=== PATIENT | female | born 1935 | race Caucasian/White ===

== ENCOUNTER 2020-02-18 17:52 | Inpatient (IN) | payer OTHER ==
[~2020-02-18] VITALS: Ht 165.1 cm; Wt 73.4 kg
[2020-02-18 18:56] LABS: Basophils # (auto) 0 10 ^3/uL (0-0.2); Basophils % (auto) 0.2 % (0.0-2.0); Eosinophils # (auto) 0 10 ^3/uL (0-0.8); Eosinophils % (auto) 0.4 % (0.0-7.0); Hemoglobin 10.5 g/dL (12.2-16.2); Lymphocytes # (auto) 0.3 10 ^3/uL (0.4-5.4); Monocytes # (auto) 0.7 10 ^3/uL (0-1.3); Neutrophils # (auto) 7.8 10 ^3/uL (1.6-8.6); White Blood Cell 8.9 10^3/uL (4.4-10.8)
[2020-02-18 18:58] LABS: Hematocrit 32.3 % (36.0-46.0); Lymphocytes % (auto) 3.8 % (10.0-50.0); Mean Corpuscular Hgb Conc. 32.5 g/dL (32.0-36.0); Monocytes % (auto) 7.7 % (0.0-12.0); Neutrophils % (auto) 87.9 % (37.0-80.0); Platelet Count (auto) 228 10^3/uL (140-450); Red Blood Cells 4.03 10^6/uL (4.0-5.20); Red Cell Distribution Width 16.1 % (11.8-14.3)
[2020-02-18 19:13] LABS: BUN/Creatinine Ratio 33.3; Magnesium 2.3 mg/dL (1.6-2.6); Potassium 4.6 mmol/L (3.5-5.1)
[2020-02-18 19:18] LABS: Bilirubin, Total 0.3 mg/dL (0.2-1.0); Total Protein 7.5 g/dL (6.4-8.2)
[2020-02-18] MEDS ORDERED: ENOXAPARIN SOD 80 MG/0.8ML SYRINGE SC ONE (20:45)
[2020-02-18] MEDS ORDERED: ONDANSETRON HCL 4 MG/2 ML VIAL IV PRN (20:45)
[2020-02-18] MEDS ORDERED: ACETAMINOPHEN 325 MG TAB PO PRN (20:45)
[2020-02-18] MEDS ORDERED: TEMAZEPAM 15 MG CAP PO PRN (20:45)
[2020-02-18] MEDS ORDERED: DEXTROSE (50%) 50ML SYRG IV PRN (20:45)
[2020-02-18] MEDS ORDERED: MORPHINE SULF INJ 2 MG/ML SYRINGE 1ML IV PRN (21:30)
[2020-02-18] MEDS ORDERED: NITROGLYCERIN 0.4 MG SL TAB SL PRN (21:30)
[2020-02-18] MEDS: InsuLIN REG 1unit/0.01ml Soln (100units/ml) SC SCH (22:00)
[2020-02-18] MEDS: ATORVASTATIN 20 MG TAB PO SCH (22:00)
[2020-02-18] MEDS: ACCU-CHEK COMFORT CURVE STRIP VI SCH (22:03)
[2020-02-18] MEDS: HYDROcodone-ACET 5/325MG TAB PO PRN (23:07)
--- NOTE | 2020-02-18 23:07 | NUR ---
Telemetry admit from CLAUD[facility] MUSTAFA admitted to Telemetry unit after SBAR received. Patient oriented to Alyson Duncan, primary RN, unit, room, bed, and unit policies regarding patient care and visiting hours. Patient now on continuous telemetry monitoring, tele box # [59] and telemetry reading on arrival to unit is [ST 101]. Patient placed on bedside oxygen, weighed by bedscale and encouraged to call if they need something. All questions and concerns addressed, patient verbalized understanding. Note: PATIENT C/O PAIN @ 06/20, AND REQUESTED TO HAVE NORCO. MEDICATED PATIENT ORDERED. CONTINUE TO MONITOR.
[2020-02-18 23:33] VITALS: BP 163/71
--- NOTE | 2020-02-19 00:07 | NUR ---
REASSESSED PAIN, PATIENT STATED NO PAIN NOW IF SHE DID NOT MOVE HER RIGHT LEG. CONTINUE TO MONITOR.
--- NOTE | 2020-02-19 00:26 | NUR ---
WOUND PICS DONE
--- NOTE | 2020-02-19 02:12 | NUR ---
PATIENT SLEEPING. NO S/S OF DISTRESS NOTED. CONTINUE TO MONITOR
[2020-02-19 05:00] VITALS: BP 151/84
[2020-02-19] MEDS: HYDROcodone-ACET 5/325MG TAB PO PRN ×3 (05:10→16:46)
--- NOTE | 2020-02-19 05:10 | NUR ---
PATIENT WOKE UP AND C/O PAIN @ 10/10, PATIENT PREFERRED NORCO. MEDICATED PATIENT ORDERED. CONTINUE TO MONITOR.
--- NOTE | 2020-02-19 06:10 | NUR ---
REASSESSED PAIN @ 02/18. CONTINUE TO MONITOR.
[2020-02-19] MEDS: InsuLIN REG 1unit/0.01ml Soln (100units/ml) SC SCH ×4 (06:27→21:38)
[2020-02-19] MEDS: ACCU-CHEK COMFORT CURVE STRIP VI SCH ×4 (06:27→21:38)
--- NOTE | 2020-02-19 06:35 | NUR ---
ACCU-CHECK, BS 112. NO COVERAGE. CONTINUE TO MONITOR.
[2020-02-19 06:43] LABS: BUN/Creatinine Ratio 35.6; Potassium 4.2 mmol/L (3.5-5.1)
[2020-02-19 06:47] LABS: Basophils # (auto) 0 10 ^3/uL (0-0.2); Basophils % (auto) 0.1 % (0.0-2.0); Eosinophils # (auto) 0.1 10 ^3/uL (0-0.8); Eosinophils % (auto) 1.2 % (0.0-7.0); Lymphocytes # (auto) 0.4 10 ^3/uL (0.4-5.4); Mean Corpuscular Volume 80.7 fL (80.0-100.0); Neutrophils # (auto) 6.2 10 ^3/uL (1.6-8.6)
[2020-02-19 06:50] LABS: Hematocrit 31.6 % (36.0-46.0); Hemoglobin 10.2 g/dL (12.2-16.2); Mean Corpuscular Hgb Conc. 32.2 g/dL (32.0-36.0); Monocytes # (auto) 0.7 10 ^3/uL (0-1.3); Monocytes % (auto) 9.1 % (0.0-12.0); Neutrophils % (auto) 84.6 % (37.0-80.0); Platelet Count (auto) 190 10^3/uL (140-450); Red Blood Cells 3.92 10^6/uL (4.0-5.20); Red Cell Distribution Width 16.2 % (11.8-14.3); White Blood Cell 7.3 10^3/uL (4.4-10.8)
--- NOTE | 2020-02-19 07:20 | NUR ---
Opening Shift Note RECEIVED REPORT FROM NOC RN. Assumed care of patient, awake and alert. No S/S of distress/SOB or pain. BED IN LOWEST, LOCKED POSITION WITH SIDE RAILS UP x2 AND CALL LIGHT WITHIN REACH. Instructed on POC,call light within reach patient reminded instructed to call for assistance.patient verbalized understanding.will continue to monitor for changes Q1hr and PRN.
--- NOTE | 2020-02-19 08:00 | NUR ---
Ritesh Alen called, updated with patient status after password provided,received list of home medications.
--- NOTE | 2020-02-19 08:30 | NUR ---
Patient assisted with breakfast,tolerated well
[2020-02-19 09:00] VITALS: BP 161/67
[2020-02-19] MEDS: ASPirin 81 mg TAB PO SCH (09:43)
[2020-02-19] MEDS: PANTOPRAZOLE 40 MG TAB PO SCH (09:43)
[2020-02-19] MEDS ORDERED: POTA10TA51 PO (10:37)
[2020-02-19] MEDS ORDERED: HYDR-531 PO (10:37)
[2020-02-19] MEDS ORDERED: LOSA-39 PO (10:37)
[2020-02-19] MEDS ORDERED: FURO20TA3 PO (10:37)
[2020-02-19] MEDS ORDERED: GLIP5TAB12 PO (10:37)
[2020-02-19] MEDS ORDERED: PIO30T PO (10:37)
--- NOTE | 2020-02-19 11:10 | NUR ---
MD VISIT DR. ROGERS HERE TO SEE AND EXAMINED PATIENT,UPDATED WITH PATIENT STATUS AND PATIENT CONSTANT C/O OF PAIN DESPITE MEDICATING WITH NORCO,HIGH BP.
--- NOTE | 2020-02-19 11:30 | NUR ---
DR. ROGERS SPOKE TO LYRIC PATIENT SON RE PLAN OF CARE,TREATMENTS AND PLAN TO DISCHARGE TO SNF FOR REHAB,RECEIVED ORDERS,SEE WRITTEN ORDERS.
[2020-02-19] MEDS ORDERED: GABA300C10 PO (11:32)
--- NOTE | 2020-02-19 11:40 | NUR ---
LYRIC (SON) SPOKE TO PATIENT RE PLAN OF CARE,PATIENT AGREED TO BE DISCHARGE TO SNF FOR REHAB.
[2020-02-19] MEDS ORDERED: GABAPENTIN 100 MG CAP PO ONE (12:00)
[2020-02-19] MEDS ORDERED: LOSARTAN POTASSIUM 50 MG TAB PO SCH (12:15)
[2020-02-19] MEDS ORDERED: LOSARTAN POTASSIUM 50 MG TAB PO ONE (12:15)
--- NOTE | 2020-02-19 12:33 | NUR ---
C/O RIGHT HIP AND LEG PAIN,MEDICATED WITH NORCO AND NEURONTIN ORDERED BY DR. ROGERS
[2020-02-19 12:36] LABS: Cholesterol 118 mg/dL (< 200)
[2020-02-19] MEDS: CARVEDILOL 3.125 MG TAB PO SCH ×2 (12:36→21:37)
[2020-02-19] MEDS: ENOXAPARIN SOD 40 MG/0.4 ML SYRINGE SC SCH (12:36)
[2020-02-19 12:38] LABS: HDL Cholesterol 34 mg/dL (40-59); LDL Cholesterol 57 mg/dL (< 100); Triglycerides 102 mg/dL (< 150)
[2020-02-19 13:00] VITALS: BP 188/75
--- NOTE | 2020-02-19 13:15 | NUR ---
MD VISIT DR. MURILLO HERE TO SEE AND EXAMINED PATIENT,STATED WILL REVIEW ECHO ONCE AVAILABLE
--- NOTE | 2020-02-19 13:35 | NUR ---
RIGHT KNEE XRAY RESULT CALLED TO DR. ROGERS
--- NOTE | 2020-02-19 14:30 | NUR ---
PHYSICAL THERAPY AT BEDSIDE FOR EVALUATION,SEE P.T. NOTES
--- NOTE | 2020-02-19 15:37 | NUR ---
Assessment Patient is an 84-year-old female. Unable to speak to patient. Assessment was completed with patient son Alen who is also patient POA ). Per Alen prior to admission patient lived home with him. Per Alen patient has a walker and shower jacinta for home use. Advised Alen there is a social service consult for SNF placement. Per Alen provider spoke to him regarding placement and he agrees for patient to be placed. Informed Alen clinical information will be faxed to [facility] and they will assign SNF placement. Per Alen he wants patient to be placed at a local [facility] nursing [facility]. Informed Alen I will inform health plan. Informed Alen he has the right to participate in all discharge planning. Alen verbalized understanding and agreed to discharge plan. Informed LIDIA Astorga who is covering LIDIA blanc (-) WILLIAMID is needed for placement. Addendum: 02/19/20 at 1539 by LYNETTE GAYTAN Amended: Links added.
--- NOTE | 2020-02-19 16:46 | NUR ---
c/o right hip and leg pain,medicated with [place] 5/325 mg see eMAR for detail
[2020-02-19 17:00] VITALS: BP 162/77
[2020-02-19] MEDS: cefTRIAXone 1GM/50ML D5W 50 ML IV SCH (17:36)
--- NOTE | 2020-02-19 18:05 | NUR ---
COVID SWAB OBTAINED,SENT TO LAB FOR TESTING
--- NOTE | 2020-02-19 19:00 | NUR ---
Opening Shift Note Assumed care of patient, patient asleep upon entering. Patient was easy to arouse, with no SOB or complaints of pain at this time. Patient stated she wanted to sleep but let me assess her. Instructed on POC and to call for assist PRN, will continue to monitor for changes Q1hr and PRN. Patient in the lowest possible position with call light within reach.
[2020-02-19 20:00] VITALS: BP 176/94
--- NOTE | 2020-02-19 20:20 | NUR ---
Call from Dr. Jackson. Informed that covid swab has been sent to the lab but we're still waiting for patient to give us a UA sample. put in for PT to evaluate patient and to hand off to day shift to ensure that patient gets up for PT to see what patient can do. Will inform dayshift RN of communication.
[2020-02-19] MEDS: GABAPENTIN 100 MG CAP PO SCH (21:37)
[2020-02-19] MEDS: ATORVASTATIN 20 MG TAB PO SCH (21:37)
[2020-02-19 22:00] VITALS: BP 176/94
[2020-02-19] MEDS ORDERED: CARVEDILOL 3.125 MG TAB PO SCH (22:00)
[2020-02-20] VITALS (12 sets, daily range): BP systolic 75–171; BP diastolic 32–70
[2020-02-20] MEDS: GABAPENTIN 100 MG CAP PO SCH ×3 (05:33→21:15)
[2020-02-20] MEDS: HYDROcodone-ACET 5/325MG TAB PO PRN (05:34)
--- NOTE | 2020-02-20 05:45 | NUR ---
Patient complains of pain in her right hip when being moved. Patient receiving [place] 5 for pain q4h. Patient states that medication is not enough for her pain level when moving her. States that she needs her medication changed for pain. Will relay message to day shift RN. Plan to go to SNF.
[2020-02-20 06:19] LABS: Basophils # (auto) 0 10 ^3/uL (0-0.2); Eosinophils # (auto) 0.1 10 ^3/uL (0-0.8)
[2020-02-20 06:21] LABS: Basophils % (auto) 0.2 % (0.0-2.0); Eosinophils % (auto) 1.8 % (0.0-7.0); Hematocrit 35.5 % (36.0-46.0); Hemoglobin 11.3 g/dL (12.2-16.2); Lymphocytes # (auto) 0.6 10 ^3/uL (0.4-5.4); Lymphocytes % (auto) 7.8 % (10.0-50.0); Mean Corpuscular Hemoglobin 25.8 pg (28.0-32.0); Mean Corpuscular Hgb Conc. 31.9 g/dL (32.0-36.0); Mean Corpuscular Volume 80.8 fL (80.0-100.0); Monocytes # (auto) 0.7 10 ^3/uL (0-1.3); Monocytes % (auto) 10.5 % (0.0-12.0); Neutrophils # (auto) 5.7 10 ^3/uL (1.6-8.6); Neutrophils % (auto) 79.7 % (37.0-80.0); Platelet Count (auto) 233 10^3/uL (140-450); Red Blood Cells 4.39 10^6/uL (4.0-5.20); Red Cell Distribution Width 16.1 % (11.8-14.3); White Blood Cell 7.1 10^3/uL (4.4-10.8)
[2020-02-20] MEDS: ACCU-CHEK COMFORT CURVE STRIP VI SCH ×4 (06:22→21:15)
[2020-02-20] MEDS: InsuLIN REG 1unit/0.01ml Soln (100units/ml) SC SCH ×4 (06:25→21:17)
[2020-02-20 06:51] LABS: BUN/Creatinine Ratio 29.8; Calcium 8.5 mg/dL (8.5-10.1)
--- NOTE | 2020-02-20 07:14 | NUR ---
OPENING SHIFT NOTE Assumed care of patient from second shift supervisor RN. Patient is alert and oriented x4, no signs of distress noted. Patient denies pain in her right hip but stated "it hurts when I move". She was updated on the plan of care and verbalized understanding. There is a sitter at bedside. Patient is a high fall risk. She is receiving oxygen @ 2L/min via nasal cannula, saturation is 93%. Patient is breathing from her mouth and was encouraged to breathe through her nose. Bed is locked, in the lowest position, side rail up x2 and call light is in reach. Patient was encouraged to call for assistance as needed.
--- NOTE | 2020-02-20 08:31 | NUR ---
CALL FROM FAMILY Patient's son Sergio called. After verification of password he was updated on the patient status and plan of care. He verbalized understanding. All questions answered.
[2020-02-20] MEDS: cefTRIAXone 1GM/50ML D5W 50 ML IV SCH (08:53)
[2020-02-20] MEDS: ASPirin 81 mg TAB PO SCH (09:54)
[2020-02-20] MEDS: LOSARTAN POTASSIUM 50 MG TAB PO SCH (09:55)
[2020-02-20] MEDS: CARVEDILOL 3.125 MG TAB PO SCH ×2 (09:55→21:25)
[2020-02-20] MEDS: PANTOPRAZOLE 40 MG TAB PO SCH (09:55)
[2020-02-20] MEDS: ENOXAPARIN SOD 40 MG/0.4 ML SYRINGE SC SCH (09:56)
[2020-02-20] MEDS ORDERED: LOSARTAN POTASSIUM 50 MG TAB PO SCH (10:00)
[2020-02-20] MEDS: HYDROcodone-ACET 10/325MG TAB PO PRN ×3 (10:03→21:16)
--- NOTE | 2020-02-20 11:03 | NUR ---
PHYSICAL THERAPY AT BEDSIDE Patient up to chair, tolerated well, Max assist.
--- NOTE | 2020-02-20 11:46 | NUR ---
CALL FROM TELE OFFICE patient showing new afib with RVR, HR is 169. Patient is sitting the the chair at bedside, patient is asymptomatic. BP is 104/50 Paged Banko and left message, awaiting call back. Called Manuel, updated on patient status, new order received for digoxin 0.5mg IV once now, order read back and verified. Follow up with cardiology. Per MD if patient HR is 150-160 this evening discharge will be held.
[2020-02-20] MEDS ORDERED: DIGOXIN (250MCG/ML) 2 ML AMPULE IV ONE (12:00)
--- NOTE | 2020-02-20 13:13 | NUR ---
CHIDI PAGED Patient HR 167. Awaiting call back.
--- NOTE | 2020-02-20 13:14 | NUR ---
CALL FROM LAB Patient blood culture is positive for gram negative rods, will notify
--- NOTE | 2020-02-20 13:18 | NUR ---
CALLED ANISHA to update on patient status. Patient heart rate is 167 and blood cultures were positive for gram negative rods. New orders received to cancel the discharge today, discontinue Rocephin and start Zosyn 3.375g IV q6h, first dose now, give amiodarone bolus 150mg x1 and start amiodarone drip per protocol. Orders read back and verified. Will follow through.
[2020-02-20] MEDS ORDERED: AMIODARONE HCL 150 MG in D5W 5% 100 ML IV ONE (13:30)
[2020-02-20] MEDS ORDERED: AMIODARONE 450mg/250ml AE 250 ML IV SCH (13:33)
--- NOTE | 2020-02-20 13:52 | NUR ---
IV insertion IV access obtained, via clean sterile technique by inserting 20 gauge catheter at right wrist after 1 attempt. IV secured properly. No trauma to site. Patient tolerated well.
[2020-02-20] MEDS: PIPERACILLIN-TAZOB 3.375GM 100 ML IV SCH ×3 (13:59→23:47)
--- NOTE | 2020-02-20 14:06 | NUR ---
CALL FROM [facility] updated on patient status. order to run amiodarone bolus over 30 minutes.
--- NOTE | 2020-02-20 14:25 | NUR ---
AMIODARONE DRIP STARTED. BP IS 98/48 HR is 156 Patient is in the chair. Patient refused to get back in bed. Patient was educated on fall risk and she continues to refuse stating "I am more comfortable in the bed. Will continue to monitor.
--- NOTE | 2020-02-20 15:05 | NUR ---
CALL TO FAMILY Patient's son Sergio called. After verification of password he was updated on the patient status and plan of care. He verbalized understanding. All questions answered.
--- NOTE | 2020-02-20 15:21 | NUR ---
AMIODARONE BOLUS COMPLETE/ DRIP STARTED HR 113 BP 110/50
--- NOTE | 2020-02-20 16:10 | NUR ---
DECREASED BLOOD PRESSURE patient blood pressure 86/32, heart rate 61. Banko paged, new orders received to bolus NS 250ml at 250ml/hr, and to decrease the amiodarone drip to 0.5mg/min, discontinue amiodarone if HR<50. Orders read back and verified.
--- NOTE | 2020-02-20 16:25 | NUR ---
ANISHA CALLED Updated on patient status, no new orders received.
[2020-02-20] MEDS: SODIUM CHLORIDE 0.9% 1,000 ML IV SCH ×3 (16:45→22:00)
--- NOTE | 2020-02-20 17:43 | NUR ---
BP 73/32 After 250ml bolus. Called Manuel, new order for NS 1000ml bolus. Will administer
[2020-02-20] MEDS ORDERED: SODIUM CHLORIDE 0.9% 2,200 ML IV ONE (18:00)
[2020-02-20] MEDS ORDERED: SODIUM CHLORIDE 0.9% 1,000 ML IV ONE (18:00)
--- NOTE | 2020-02-20 18:40 | NUR ---
BP RECHECK 136/64 500ml of bolus remaining.
--- NOTE | 2020-02-20 19:02 | NUR ---
CLOSING SHIFT NOTE Care endorsed to shift supervisor film processing RN. Patient is stable BP 128/62, HR 73. No signs of distress noted.
--- NOTE | 2020-02-20 19:15 | NUR ---
Opening Shift Note Assumed care of patient, awake and alert. No S/S of distress/SOB or pain at this time. Patient in the lowest possible position with bed rails up x2 and call light within reach. Bolus at end, blood pressure reading 133/62 with a heart rate of 72. Blood pressure continuing to cycle to monitor. Will continue to monitor patients vitals as patient is receiving amiodarone. Will stop infusing if heart rate goes below 50. Instructed on POC and to call for assist PRN, will continue to monitor for changes Q1hr and PRN.
[2020-02-20] MEDS: AMIODARONE 450mg/250ml AE 250 ML IV SCH (19:33)
[2020-02-20] MEDS: ATORVASTATIN 20 MG TAB PO SCH (21:15)
[2020-02-21] MEDS: SODIUM CHLORIDE 0.9% 1,000 ML IV SCH (02:45)
--- NOTE | 2020-02-21 04:20 | NUR ---
Patient on 0.5 mg amiodarone. Patient attached to B/P and O2 for the night. Patient has been having her heart rate stay in the 60-70s, will continue to monitor if it goes below 50. Patients B/P has been fluctuating but has been staying around the 90s to the low 100s for systolic pressure. Patient receiving NS. Will continue to monitor patients vitals for a decrease in blood pressure.
[2020-02-21 05:00] VITALS: BP 128/53
[2020-02-21] MEDS: GABAPENTIN 100 MG CAP PO SCH ×2 (05:35→14:05)
[2020-02-21] MEDS: PIPERACILLIN-TAZOB 3.375GM 100 ML IV SCH ×2 (05:35→11:42)
[2020-02-21] MEDS: HYDROcodone-ACET 10/325MG TAB PO PRN ×4 (05:36→18:11)
[2020-02-21] MEDS: AMIODARONE 450mg/250ml AE 250 ML IV SCH (05:36)
[2020-02-21] MEDS: ACCU-CHEK COMFORT CURVE STRIP VI SCH ×3 (05:54→16:51)
[2020-02-21] MEDS: InsuLIN REG 1unit/0.01ml Soln (100units/ml) SC SCH ×3 (06:05→16:55)
--- NOTE | 2020-02-21 07:00 | NUR ---
OPENING SHIFT NOTE Assumed care of patient from night clerk RN. Patient is alert and oriented x4, no signs of distress noted. Patient denies pain in her right hip but stated "it hurts when I move". She was updated on the plan of care and verbalized understanding. There is a sitter at bedside. Patient is a high fall risk. She is receiving oxygen @ 3L/min via nasal cannula, saturation is 91%. Patient is breathing from her mouth and was encouraged to breathe through her nose. Bed is locked, in the lowest position, side rail up x2 and call light is in reach. Patient was encouraged to call for assistance as needed.
--- NOTE | 2020-02-21 07:27 | NUR ---
BP 75/31 HR 76 Manuel called and updated on patient status. After repositioning patient BP was 127/50. Communication order to get patient up to the chair today Jonio paged to see if we can switch the amiodarone to PO per Manuel suggestions. Awaiting call back.
--- NOTE | 2020-02-21 08:03 | NUR ---
BP 127/50, HR 81 Will continue to monitor.
--- NOTE | 2020-02-21 08:42 | NUR ---
CHIDI REPAGED regarding discontinuing the amiodarone and switching it to PO. Awaiting call back
[2020-02-21 09:03] VITALS: BP 127/50
[2020-02-21] MEDS: PANTOPRAZOLE 40 MG TAB PO SCH (09:53)
[2020-02-21] MEDS: ASPirin 81 mg TAB PO SCH (09:53)
[2020-02-21] MEDS: ENOXAPARIN SOD 40 MG/0.4 ML SYRINGE SC SCH (09:53)
--- NOTE | 2020-02-21 10:19 | NUR ---
CALL FROM [facility] Updated on the patient status, new order to DC amiodarone drip and start patient on amiodarone 200mg PO BID. Orders read back and verified. Will input. Addendum: 02/21/20 at 1048 by PATRICIA PADGETT RN Per MD patient is stable for transport to [facility].
[2020-02-21] MEDS ORDERED: AMIODARONE HCL 200 MG TAB PO SCH (10:30)
[2020-02-21] MEDS: LOSARTAN POTASSIUM 50 MG TAB PO SCH (10:38)
[2020-02-21] MEDS: CARVEDILOL 3.125 MG TAB PO SCH (10:38)
--- NOTE | 2020-02-21 10:41 | NUR ---
ANISHA AT BEDSIDE Updated on patient status, plan of care was discussed with the patient and she verbalized understanding. Per MD patient will be transferred to SNF today, titrate down O2 and transfer with one peripheral IV. No other orders received, will follow through.
--- NOTE | 2020-02-21 12:09 | NUR ---
CALL FROM LYNETTE REGARDING SNF PLACEMENT Patient will be going to [facility] room 205 bed 2. Number to call for report: . Patient will be picked up by Iker Yee at 1800. .
--- NOTE | 2020-02-21 12:12 | NUR ---
CALLED PATIENT'S SON Sourav . After Verification of password he was updated on the plan to discharge patient to SNF. All questions answered.
[2020-02-21 12:23] VITALS: BP 120/59
--- NOTE | 2020-02-21 15:41 | NUR ---
D/C Planning Received a follow up call from MICHEL Giron with [facility] advising me [facility] [phone] has accepted patient to room 205 bed 2 accepting MD, Dr. Gilmore. Transportation has been arranged with [facility] [phone] via [facility]. Informed RN Collette.
[2020-02-21 16:41] VITALS: BP 118/59
--- NOTE | 2020-02-21 17:10 | NUR ---
WOUND PICTURES TAKEN FOR DC
[2020-02-21 17:30] VITALS: BP 118/59
--- NOTE | 2020-02-21 18:20 | NUR ---
DISCHARGE Discharge instructions given as ordered. Encourage to follow up with PMD as instructed. All questions and concerns addressed. Patient verbalized understanding. Medication reconciliation form completed and copy given to patient. IV kept in per MD order. Patient transported via [facility]. Telemonitor taken with the patient. Charge informed. Called security to see if they can pick it up. Awaiting call back.
== END 2020-02-21 18:20 | DRG 554 ==
LOC: ER 17:52 → EDBD 17:52 → TELE-WESTW 17:53
PROVIDERS: ADMIT Nurse Practitioner; ATTEND Internal Medicine
DX: M16.0 Bilateral primary osteoarthritis of hip (principal); R55 Syncope and collapse; R79.89 Other specified abnormal findings of blood chemistry; N18.3 Chronic kidney disease, stage 3 (moderate); E11.22 Type 2 diabetes mellitus with diabetic chronic kidney disease; D64.9 Anemia, unspecified; W01.0XXA Fall on same level from slipping, tripping and stumbling without subsequent striking against object, initial encounter; M43.06 Spondylolysis, lumbar region; E86.9 Volume depletion, unspecified; I48.91 Unspecified atrial fibrillation; Z79.899 Other long term (current) drug therapy; Y93.89 Activity, other specified; Y92.091 Bathroom in other non-institutional residence as the place of occurrence of the external cause; Y99.8 Other external cause status; Z11.59 Encounter for screening for other viral diseases; I12.9 Hypertensive chronic kidney disease with stage 1 through stage 4 chronic kidney disease, or unspecified chronic kidney disease
CPT/HCPCS: 36415; 71045; 72192; 73562; 80048; 80053; 80061; 82962; 83036; 83735; 84484; 85025; 87040; 87077; 87186; 93005; 93306; 97110; 97530; G0378; J0696; J1815; J2543; J7060

== ENCOUNTER 2020-02-29 22:17 | Inpatient (IN) | payer OTHER ==
[~2020-02-29] VITALS: Ht 160 cm; Wt 82.3 kg
[~2020-02-29 22:17] MED LIST: FURO20TA3 PO; GABA300C10 PO; GLIP5TAB12 PO; HYDR-531 PO; LOSA-39 PO; PIO30T PO; POTA10TA51 PO
[2020-03-01] VITALS (57 sets, daily range): BP systolic 76–232; BP diastolic 26–92
[2020-03-01] MEDS ORDERED: ONDANSETRON HCL 4 MG/2 ML VIAL IV ONE (00:30)
[2020-03-01] MEDS ORDERED: MORPHINE SULFATE 4 MG/ML SYR/VIAL IV ONE (00:30)
[2020-03-01] MEDS ORDERED: SODIUM CHLORIDE 0.9% 1,000 ML IVB ONE (02:10)
[2020-03-01 02:30] LABS: Basophils # (auto) 0.1 10 ^3/uL (0-0.2); Basophils % (auto) 0.6 % (0.0-2.0); Eosinophils # (auto) 0.7 10 ^3/uL (0-0.8); Hemoglobin 8.5 g/dL (12.2-16.2); Neutrophils # (auto) 8.8 10 ^3/uL (1.6-8.6); Platelet Count (auto) 526 10^3/uL (140-450)
[2020-03-01 02:32] LABS: Eosinophils % (auto) 5.9 % (0.0-7.0); Hematocrit 27.2 % (36.0-46.0); Lymphocytes % (auto) 8.5 % (10.0-50.0); Mean Corpuscular Hemoglobin 25.8 pg (28.0-32.0); Mean Corpuscular Hgb Conc. 31.2 g/dL (32.0-36.0); Mean Corpuscular Volume 82.8 fL (80.0-100.0); Monocytes # (auto) 1.2 10 ^3/uL (0-1.3); Monocytes % (auto) 9.8 % (0.0-12.0); Neutrophils % (auto) 75.2 % (37.0-80.0); Nucleated Red Blood Cells % 0.1 %; Red Blood Cells 3.29 10^6/uL (4.0-5.20); Red Cell Distribution Width 16.2 % (11.8-14.3); White Blood Cell 11.7 10^3/uL (4.4-10.8)
[2020-03-01 02:47] LABS: Albumin 1.8 g/dL (3.4-5.0); Calcium 7.5 mg/dL (8.5-10.1); INR 1.07 (0.9-1.15); Partial Thromboplastin Time 27.1 sec (23.64-32.05)
[2020-03-01 02:49] LABS: BUN/Creatinine Ratio 55.2
[2020-03-01 02:54] LABS: Bilirubin, Total 0.3 mg/dL (0.2-1.0); Total Protein 5.8 g/dL (6.4-8.2)
[2020-03-01 03:07] LABS: Urine Bacteria NONE SEEN /hpf (None Seen); Urine Blood Negative /uL (Negative); Urine Specific Gravity 1.011 (1.001-1.035); Urine WBC <1 /hpf (0 - 5)
[2020-03-01] MEDS ORDERED: DEXTROSE (50%) 50ML SYRG IV ONE ×2 (03:15→06:15)
[2020-03-01] MEDS ORDERED: CALCIUM GLUC 4.65meq/50ml D5AE 50 ML IV ONE ×2 (03:15→18:45)
[2020-03-01] MEDS ORDERED: SODIUM BICARBONATE 8.4 % INJ 50ML VIAL IV ONE (03:15)
[2020-03-01] MEDS ORDERED: InsuLIN REG 1unit/0.01ml Soln (100units/ml) IV ONE (03:15)
[2020-03-01] MEDS: NOREPINEPHRINE 8 MG/250ML KIT 250 ML IV SCH ×2 (03:55→09:00)
[2020-03-01] MEDS ORDERED: fentaNYL CITRATE 100 MCG/2 ML VL IV ONE (04:15)
[2020-03-01] MEDS ORDERED: ETOMIDATE (2MG/ML) 20ML VIAL IV ONE (04:30)
[2020-03-01] MEDS ORDERED: SUCCINYLCHOLINE CHLORIDE 20 MG/ML 10ML VIAL IV ONE (04:30)
[2020-03-01] MEDS: fentaNYL Drip 2500mCg/250mlNS 250 ML IV SCH ×2 (04:57→09:00)
[2020-03-01] MEDS: MIDAZOLAM DRIP 50 mg/50mL 50 ML IV SCH (04:59)
[2020-03-01] MEDS ORDERED: NITROGLYCERIN 0.4 MG SL TAB SL PRN (07:00)
[2020-03-01 07:23] LABS: Basophils # (auto) 0.1 10 ^3/uL (0-0.2); Hemoglobin 9.3 g/dL (12.2-16.2); Lymphocytes % (auto) 7.4 % (10.0-50.0); Monocytes # (auto) 1.1 10 ^3/uL (0-1.3)
[2020-03-01 07:24] LABS: Chloride 116 mmol/L (98-107); Sodium 145 mmol/L (136-145)
[2020-03-01 07:25] LABS: Basophils % (auto) 0.7 % (0.0-2.0); Eosinophils # (auto) 0.7 10 ^3/uL (0-0.8); Eosinophils % (auto) 5.9 % (0.0-7.0); Hematocrit 29.5 % (36.0-46.0); Lymphocytes # (auto) 0.8 10 ^3/uL (0.4-5.4); Mean Corpuscular Hemoglobin 26.4 pg (28.0-32.0); Mean Corpuscular Hgb Conc. 31.5 g/dL (32.0-36.0); Monocytes % (auto) 9.8 % (0.0-12.0); Neutrophils # (auto) 8.6 10 ^3/uL (1.6-8.6); Neutrophils % (auto) 76.2 % (37.0-80.0); Nucleated Red Blood Cells % 0.1 %; Platelet Count (auto) 560 10^3/uL (140-450); Red Blood Cells 3.52 10^6/uL (4.0-5.20); White Blood Cell 11.4 10^3/uL (4.4-10.8)
[2020-03-01 07:29] LABS: Anion Gap 6 (5-15); BUN/Creatinine Ratio 52.4; Blood Urea Nitrogen 77 mg/dL (7-18); Calcium 7.8 mg/dL (8.5-10.1); Carbon Dioxide 23 mmol/L (21-32); GFR African American 44 mL/min; GFR Non-African American 36 mL/min; Glucose 58 mg/dL (74-106)
[2020-03-01] MEDS ORDERED: SOD CHL 0.45% 1,000 ML IV ONE (07:30)
[2020-03-01] MEDS ORDERED: ALBUMIN 25% 100 ML IV ONE (07:30)
[2020-03-01 07:58] LABS: Alanine Aminotransferase 25 U/L (13-56); Alkaline Phosphatase 81 U/L (45-117); Aspartate Aminotransferase 18 U/L (15-37); Bilirubin, Total 0.3 mg/dL (0.2-1.0); Total Protein 6.6 g/dL (6.4-8.2)
[2020-03-01 08:26] LABS: Potassium 5.8 mmol/L (3.5-5.1)
[2020-03-01] MEDS ORDERED: IPRATROPIUM BROM 0.5 MG/2.5ML INH SOL NEB SCH (10:00)
[2020-03-01] MEDS ORDERED: ALBUTEROL SULF 2.5 MG/0.5ML(0.5%) NEB SOLN NEB SCH (10:00)
[2020-03-01] MEDS: IPRATROPIUM BROM 0.5 MG/2.5ML INH SOL NEB SCH ×4 (10:12→22:03)
[2020-03-01] MEDS: ALBUTEROL SULF 2.5 MG/0.5ML(0.5%) NEB SOLN NEB SCH ×4 (10:12→22:03)
[2020-03-01] MEDS ORDERED: VANCOMYCIN PER PHARMACY 0 MG IV SCH (13:15)
[2020-03-01] MEDS ORDERED: VANCOMYCIN 1GM/250ML 250 ML IV ONE (13:30)
[2020-03-01] MEDS ORDERED: CEFEPIME 1 GM in SODIUM CHL 0.9% 50 ML IV ONE (13:30)
[2020-03-01 15:34] LABS: BUN/Creatinine Ratio 52.3; Potassium 5.5 mmol/L (3.5-5.1)
[2020-03-01] MEDS ORDERED: SODIUM CHLORIDE 0.9% 500 ML IV ONE (18:45)
[2020-03-01] MEDS ORDERED: BUMETANIDE 2.5mg/10ml (0.25 mg/ml) INJ IV ONE (20:00)
[2020-03-01] MEDS: SODIUM CHLORIDE 0.9% 1,000 ML IV SCH (21:38)
[2020-03-01] MEDS: CEFEPIME 1 GM in SODIUM CHL 0.9% 50 ML IV SCH (21:38)
[2020-03-02] VITALS (103 sets, daily range): BP systolic 81–146; BP diastolic 25–58
[2020-03-02 01:11] LABS: Basophils # (auto) 0 10 ^3/uL (0-0.2); Hemoglobin 8.8 g/dL (12.2-16.2); Lymphocytes # (auto) 0.7 10 ^3/uL (0.4-5.4); Neutrophils # (auto) 7.8 10 ^3/uL (1.6-8.6)
[2020-03-02 01:12] LABS: Basophils % (auto) 0.3 % (0.0-2.0); Eosinophils # (auto) 0.9 10 ^3/uL (0-0.8); Eosinophils % (auto) 9.2 % (0.0-7.0); Lymphocytes % (auto) 7.1 % (10.0-50.0); Mean Corpuscular Hemoglobin 26.3 pg (28.0-32.0); Mean Corpuscular Hgb Conc. 31.3 g/dL (32.0-36.0); Mean Corpuscular Volume 83.9 fL (80.0-100.0); Monocytes # (auto) 0.7 10 ^3/uL (0-1.3); Monocytes % (auto) 6.9 % (0.0-12.0); Neutrophils % (auto) 76.5 % (37.0-80.0); Platelet Count (auto) 542 10^3/uL (140-450); Red Blood Cells 3.33 10^6/uL (4.0-5.20); Red Cell Distribution Width 17.2 % (11.8-14.3); White Blood Cell 10.2 10^3/uL (4.4-10.8)
[2020-03-02 01:26] LABS: BUN/Creatinine Ratio 53.8; Calcium 8.1 mg/dL (8.5-10.1); Potassium 5.4 mmol/L (3.5-5.1)
[2020-03-02] MEDS: IPRATROPIUM BROM 0.5 MG/2.5ML INH SOL NEB SCH ×6 (02:16→21:55)
[2020-03-02] MEDS: ALBUTEROL SULF 2.5 MG/0.5ML(0.5%) NEB SOLN NEB SCH ×6 (02:16→21:55)
[2020-03-02] MEDS: SODIUM CHLORIDE 0.9% 1,000 ML IV SCH ×3 (02:45→18:34)
[2020-03-02] MEDS: MIDAZOLAM DRIP 50 mg/50mL 50 ML IV SCH ×2 (04:33→16:39)
[2020-03-02 05:24] LABS: Albumin 2.2 g/dL (3.4-5.0); Bilirubin, Direct 0.2 mg/dL (0-0.2)
[2020-03-02 05:28] LABS: Bilirubin, Total 0.5 mg/dL (0.2-1.0); Phosphorus 4.6 mg/dL (2.5-4.90); Total Protein 6.1 g/dL (6.4-8.2)
[2020-03-02] MEDS ORDERED: SODIUM ZIRCONIUM CYCL 10 GM PAK PO ONE (09:30)
[2020-03-02] MEDS: CEFEPIME 1 GM in SODIUM CHL 0.9% 50 ML IV SCH ×2 (12:21→21:49)
[2020-03-02] MEDS: VANCOMYCIN 1GM/250ML 250 ML IV SCH (12:21)
[2020-03-02] MEDS: NOREPINEPHRINE 8 MG/250ML KIT 250 ML IV SCH (16:38)
[2020-03-02] MEDS: fentaNYL Drip 2500mCg/250mlNS 250 ML IV SCH (16:39)
[2020-03-03] VITALS (98 sets, daily range): BP systolic 81–155; BP diastolic 12–71
[2020-03-03] MEDS: ALBUTEROL SULF 2.5 MG/0.5ML(0.5%) NEB SOLN NEB SCH ×6 (02:05→21:57)
[2020-03-03] MEDS: IPRATROPIUM BROM 0.5 MG/2.5ML INH SOL NEB SCH ×6 (02:05→21:57)
[2020-03-03 04:59] LABS: Basophils # (auto) 0 10 ^3/uL (0-0.2); Eosinophils # (auto) 0.8 10 ^3/uL (0-0.8); Lymphocytes # (auto) 0.8 10 ^3/uL (0.4-5.4); Monocytes # (auto) 1.1 10 ^3/uL (0-1.3); Nucleated Red Blood Cells % 0.2 %
[2020-03-03 05:00] LABS: Basophils % (auto) 0.5 % (0.0-2.0); Eosinophils % (auto) 7.5 % (0.0-7.0); Hematocrit 29.1 % (36.0-46.0); Lymphocytes % (auto) 7.8 % (10.0-50.0); Mean Corpuscular Hemoglobin 26.2 pg (28.0-32.0); Mean Corpuscular Volume 84.5 fL (80.0-100.0); Neutrophils # (auto) 7.4 10 ^3/uL (1.6-8.6); Neutrophils % (auto) 73.2 % (37.0-80.0); Platelet Count (auto) 423 10^3/uL (140-450); Red Blood Cells 3.44 10^6/uL (4.0-5.20); Red Cell Distribution Width 17.3 % (11.8-14.3); White Blood Cell 10.1 10^3/uL (4.4-10.8)
[2020-03-03 05:17] LABS: Calcium 8.2 mg/dL (8.5-10.1); Potassium 5.5 mmol/L (3.5-5.1)
[2020-03-03 05:20] LABS: BUN/Creatinine Ratio 48.7
[2020-03-03] MEDS: SODIUM CHLORIDE 0.9% 1,000 ML IV SCH ×2 (05:52→10:54)
[2020-03-03] MEDS ORDERED: SODIUM ZIRCONIUM CYCL 10 GM PAK PO ONE (10:00)
[2020-03-03] MEDS ORDERED: ALBUTEROL SULF 2.5 MG/0.5ML(0.5%) NEB SOLN NEB ONE (10:30)
[2020-03-03] MEDS ORDERED: InsuLIN REG 1unit/0.01ml Soln (100units/ml) IV ONE (10:30)
[2020-03-03] MEDS ORDERED: DEXTROSE (50%) 50ML SYRG IV ONE (10:30)
[2020-03-03] MEDS: CEFEPIME 1 GM in SODIUM CHL 0.9% 50 ML IV SCH ×2 (10:55→22:00)
[2020-03-03] MEDS: VANCOMYCIN 1GM/250ML 250 ML IV SCH (12:20)
[2020-03-03] MEDS: fentaNYL Drip 2500mCg/250mlNS 250 ML IV SCH (16:08)
[2020-03-03] MEDS: MIDAZOLAM DRIP 50 mg/50mL 50 ML IV SCH (22:00)
[2020-03-04] VITALS (100 sets, daily range): BP systolic 92–153; BP diastolic 29–51
[2020-03-04] MEDS: IPRATROPIUM BROM 0.5 MG/2.5ML INH SOL NEB SCH ×6 (02:00→22:11)
[2020-03-04] MEDS: ALBUTEROL SULF 2.5 MG/0.5ML(0.5%) NEB SOLN NEB SCH ×6 (02:00→22:11)
[2020-03-04] MEDS: SODIUM CHLORIDE 0.9% 1,000 ML IV SCH ×2 (02:55→19:35)
[2020-03-04] MEDS: NOREPINEPHRINE 8 MG/250ML KIT 250 ML IV SCH (03:15)
[2020-03-04 07:54] LABS: Basophils # (auto) 0.1 10 ^3/uL (0-0.2); Eosinophils # (auto) 0.4 10 ^3/uL (0-0.8); Hemoglobin 8.1 g/dL (12.2-16.2); Monocytes # (auto) 0.6 10 ^3/uL (0-1.3); Monocytes % (auto) 7.5 % (0.0-12.0); Neutrophils # (auto) 6.3 10 ^3/uL (1.6-8.6); White Blood Cell 7.9 10^3/uL (4.4-10.8)
[2020-03-04 07:56] LABS: Basophils % (auto) 0.9 % (0.0-2.0); Eosinophils % (auto) 5.4 % (0.0-7.0); Hematocrit 26.5 % (36.0-46.0); Lymphocytes # (auto) 0.4 10 ^3/uL (0.4-5.4); Lymphocytes % (auto) 5.7 % (10.0-50.0); Mean Corpuscular Hemoglobin 25.3 pg (28.0-32.0); Mean Corpuscular Hgb Conc. 30.5 g/dL (32.0-36.0); Neutrophils % (auto) 80.5 % (37.0-80.0); Platelet Count (auto) 424 10^3/uL (140-450); Red Blood Cells 3.19 10^6/uL (4.0-5.20); Red Cell Distribution Width 17.4 % (11.8-14.3)
[2020-03-04 08:11] LABS: BUN/Creatinine Ratio 48.9; Potassium 4.4 mmol/L (3.5-5.1)
[2020-03-04] MEDS: CEFEPIME 1 GM in SODIUM CHL 0.9% 50 ML IV SCH ×2 (11:08→22:00)
[2020-03-04] MEDS: VANCOMYCIN 1GM/250ML 250 ML IV SCH (12:00)
[2020-03-05] VITALS (97 sets, daily range): BP systolic 95–185; BP diastolic 35–74
[2020-03-05] MEDS: IPRATROPIUM BROM 0.5 MG/2.5ML INH SOL NEB SCH ×6 (02:13→22:05)
[2020-03-05] MEDS: ALBUTEROL SULF 2.5 MG/0.5ML(0.5%) NEB SOLN NEB SCH ×6 (02:13→22:05)
[2020-03-05] MEDS: NOREPINEPHRINE 8 MG/250ML KIT 250 ML IV SCH (03:15)
[2020-03-05] MEDS: fentaNYL Drip 2500mCg/250mlNS 250 ML IV SCH (03:57)
[2020-03-05] MEDS: MIDAZOLAM DRIP 50 mg/50mL 50 ML IV SCH (03:58)
[2020-03-05 05:26] LABS: Potassium 4.1 mmol/L (3.5-5.1)
[2020-03-05 05:27] LABS: BUN/Creatinine Ratio 48.7; Calcium 8.5 mg/dL (8.5-10.1)
[2020-03-05] MEDS: SOD CHL 0.45% 1,000 ML IV SCH (08:39)
[2020-03-05] MEDS ORDERED: METOPROLOL TARTRATE 1MG/1ML-5ML VIAL IV PRN (09:30)
[2020-03-05] MEDS: CEFEPIME 1 GM in SODIUM CHL 0.9% 50 ML IV SCH ×2 (09:48→22:00)
[2020-03-05] MEDS: hydrALAZINE HCL 20 MG/ML VL IV PRN (14:21)
[2020-03-05] MEDS: VANCOMYCIN 1GM/250ML 250 ML IV SCH (14:24)
[2020-03-05 19:01] LABS: INR 1.13 (0.9-1.15)
[2020-03-06] VITALS (84 sets, daily range): BP systolic 75–191; BP diastolic 30–77
[2020-03-06] MEDS: IPRATROPIUM BROM 0.5 MG/2.5ML INH SOL NEB SCH ×6 (02:10→22:27)
[2020-03-06] MEDS: ALBUTEROL SULF 2.5 MG/0.5ML(0.5%) NEB SOLN NEB SCH ×6 (02:10→22:27)
[2020-03-06] MEDS: NOREPINEPHRINE 8 MG/250ML KIT 250 ML IV SCH (03:15)
[2020-03-06] MEDS: SOD CHL 0.45% 1,000 ML IV SCH (04:15)
[2020-03-06] MEDS: fentaNYL Drip 2500mCg/250mlNS 250 ML IV SCH (04:33)
[2020-03-06] MEDS: MIDAZOLAM DRIP 50 mg/50mL 50 ML IV SCH ×2 (04:33→22:01)
[2020-03-06 08:30] LABS: Eosinophils # (auto) 0.2 10 ^3/uL (0-0.8); Monocytes # (auto) 0.6 10 ^3/uL (0-1.3); Neutrophils # (auto) 5.9 10 ^3/uL (1.6-8.6); White Blood Cell 7.1 10^3/uL (4.4-10.8)
[2020-03-06 08:32] LABS: Basophils # (auto) 0.1 10 ^3/uL (0-0.2); Basophils % (auto) 0.8 % (0.0-2.0); Hematocrit 28.3 % (36.0-46.0); Hemoglobin 8.6 g/dL (12.2-16.2); Lymphocytes # (auto) 0.3 10 ^3/uL (0.4-5.4); Lymphocytes % (auto) 4.9 % (10.0-50.0); Mean Corpuscular Hemoglobin 25.2 pg (28.0-32.0); Mean Corpuscular Hgb Conc. 30.5 g/dL (32.0-36.0); Mean Corpuscular Volume 82.5 fL (80.0-100.0); Monocytes % (auto) 8.5 % (0.0-12.0); Neutrophils % (auto) 82.8 % (37.0-80.0); Platelet Count (auto) 413 10^3/uL (140-450); Red Blood Cells 3.43 10^6/uL (4.0-5.20)
[2020-03-06 08:48] LABS: INR 1.16 (0.9-1.15); Partial Thromboplastin Time 28.3 sec (23.64-32.05)
[2020-03-06 08:50] LABS: Albumin 1.9 g/dL (3.4-5.0); Calcium 8.6 mg/dL (8.5-10.1); Potassium 3.7 mmol/L (3.5-5.1)
[2020-03-06 08:54] LABS: BUN/Creatinine Ratio 36.9; Bilirubin, Total 0.4 mg/dL (0.2-1.0); Total Protein 6.4 g/dL (6.4-8.2)
[2020-03-06] MEDS: CEFEPIME 1 GM in SODIUM CHL 0.9% 50 ML IV SCH ×2 (09:39→22:14)
[2020-03-06 11:17] LABS: Urine Amorphous Crystal FEW /hpf (None Seen); Urine Bacteria FEW /hpf (None Seen); Urine Blood 1+ /uL (Negative); Urine Mucus FEW (None Seen); Urine Specific Gravity 1.014 (1.001-1.035); Urine WBC 75 /hpf (0 - 5); Urine WBC Clumps PRESENT /hpf (None Seen)
[2020-03-06] MEDS: SOD CHL 0.45% WITH 20MEQ KCL 1,000 ML IV SCH (11:30)
[2020-03-06] MEDS ORDERED: ROCURONIUM 10MG/ML 10ML VIAL IV ONE (12:52)
[2020-03-06] MEDS ORDERED: fentaNYL CITRATE 100 MCG/2 ML VL ONE (13:07)
[2020-03-06] MEDS ORDERED: ACCU-CHEK COMFORT CURVE STRIP VI ONE (13:45)
[2020-03-06] MEDS ORDERED: HYDROmorphone HCL 2 MG/ML VL IV PRN (13:45)
[2020-03-06] MEDS ORDERED: NALOXONE HCL 0.4 MG/ML VIAL IV PRN (13:45)
[2020-03-06] MEDS ORDERED: ONDANSETRON HCL 4 MG/2 ML VIAL IV PRN (13:45)
[2020-03-06] MEDS ORDERED: STERILE WATER 10 ML ONE (13:58)
[2020-03-06] MEDS ORDERED: ePHEDrine SULFATE 50 MG/ML AMP ONE (13:58)
[2020-03-06] MEDS ORDERED: MIDAZOLAM HCL 1MG/1ML-2 ML VIAL ONE (15:25)
[2020-03-06] MEDS: ceFAZolin 1GM/50ML 50 ML IV SCH ×2 (17:15→21:10)
[2020-03-06] MEDS: VANCOMYCIN 750mg/250ml 250 ML IV SCH (18:00)
[2020-03-07] VITALS (104 sets, daily range): BP systolic 79–165; BP diastolic 24–57
[2020-03-07] MEDS: IPRATROPIUM BROM 0.5 MG/2.5ML INH SOL NEB SCH ×6 (02:24→21:59)
[2020-03-07] MEDS: ALBUTEROL SULF 2.5 MG/0.5ML(0.5%) NEB SOLN NEB SCH ×6 (02:24→21:59)
[2020-03-07] MEDS: ceFAZolin 1GM/50ML 50 ML IV SCH (03:45)
[2020-03-07] MEDS: SOD CHL 0.45% WITH 20MEQ KCL 1,000 ML IV SCH ×2 (04:00→07:30)
[2020-03-07 04:32] LABS: Basophils # (auto) 0.1 10 ^3/uL (0-0.2); Basophils % (auto) 0.9 % (0.0-2.0); Eosinophils # (auto) 0 10 ^3/uL (0-0.8); Eosinophils % (auto) 0.6 % (0.0-7.0); Hematocrit 26.2 % (36.0-46.0); Hemoglobin 8.2 g/dL (12.2-16.2); Lymphocytes # (auto) 0.4 10 ^3/uL (0.4-5.4); Lymphocytes % (auto) 5.6 % (10.0-50.0); Mean Corpuscular Hemoglobin 26.8 pg (28.0-32.0); Mean Corpuscular Hgb Conc. 31.4 g/dL (32.0-36.0); Mean Corpuscular Volume 85.3 fL (80.0-100.0); Monocytes # (auto) 0.6 10 ^3/uL (0-1.3); Monocytes % (auto) 8.4 % (0.0-12.0); Neutrophils % (auto) 84.5 % (37.0-80.0); Nucleated Red Blood Cells % 0.1 %; Platelet Count (auto) 387 10^3/uL (140-450); Red Blood Cells 3.07 10^6/uL (4.0-5.20); Red Cell Distribution Width 17.4 % (11.8-14.3)
[2020-03-07] MEDS: fentaNYL Drip 2500mCg/250mlNS 250 ML IV SCH ×2 (04:33→21:43)
[2020-03-07 04:44] LABS: Albumin 1.8 g/dL (3.4-5.0); Calcium 7.9 mg/dL (8.5-10.1); Potassium 4.7 mmol/L (3.5-5.1)
[2020-03-07 04:47] LABS: BUN/Creatinine Ratio 34.3
[2020-03-07 04:48] LABS: Bilirubin, Total 0.4 mg/dL (0.2-1.0); Total Protein 5.8 g/dL (6.4-8.2)
[2020-03-07] MEDS: POTASSIUM CHLORIDE 10 MEQ in SOD CHL 0.45% 1,000 ML IV SCH ×2 (08:15→22:30)
[2020-03-07] MEDS: FREE WATER NG SCH ×4 (09:28→22:50)
[2020-03-07] MEDS: CEFEPIME 1 GM in SODIUM CHL 0.9% 50 ML IV SCH ×2 (09:28→22:30)
[2020-03-07] MEDS: NOREPINEPHRINE 8 MG/250ML KIT 250 ML IV SCH ×2 (14:28)
[2020-03-07] MEDS: MIDAZOLAM DRIP 50 mg/50mL 50 ML IV SCH ×2 (14:29→21:43)
[2020-03-07] MEDS: VANCOMYCIN 750mg/250ml 250 ML IV SCH (18:15)
[2020-03-08] VITALS (101 sets, daily range): BP systolic 93–153; BP diastolic 20–52
[2020-03-08] MEDS: FREE WATER NG SCH ×6 (02:00→21:53)
[2020-03-08] MEDS: ALBUTEROL SULF 2.5 MG/0.5ML(0.5%) NEB SOLN NEB SCH ×6 (02:33→22:18)
[2020-03-08] MEDS: IPRATROPIUM BROM 0.5 MG/2.5ML INH SOL NEB SCH ×6 (02:33→22:18)
[2020-03-08 04:15] LABS: Basophils # (auto) 0.1 10 ^3/uL (0-0.2); Eosinophils # (auto) 0.3 10 ^3/uL (0-0.8); Monocytes # (auto) 1.1 10 ^3/uL (0-1.3); White Blood Cell 9.7 10^3/uL (4.4-10.8)
[2020-03-08 04:17] LABS: Basophils % (auto) 0.5 % (0.0-2.0); Eosinophils % (auto) 3.4 % (0.0-7.0); Hematocrit 21.8 % (36.0-46.0); Lymphocytes # (auto) 0.6 10 ^3/uL (0.4-5.4); Lymphocytes % (auto) 5.9 % (10.0-50.0); Mean Corpuscular Hemoglobin 27.1 pg (28.0-32.0); Mean Corpuscular Hgb Conc. 31.8 g/dL (32.0-36.0); Mean Corpuscular Volume 85.1 fL (80.0-100.0); Monocytes % (auto) 11.4 % (0.0-12.0); Neutrophils # (auto) 7.6 10 ^3/uL (1.6-8.6); Neutrophils % (auto) 78.8 % (37.0-80.0); Platelet Count (auto) 331 10^3/uL (140-450); Red Blood Cells 2.56 10^6/uL (4.0-5.20); Red Cell Distribution Width 17.7 % (11.8-14.3)
[2020-03-08 04:25] LABS: Hemoglobin 6.9 g/dL (12.2-16.2)
[2020-03-08 04:34] LABS: Calcium 7.7 mg/dL (8.5-10.1); Potassium 4.4 mmol/L (3.5-5.1)
[2020-03-08 04:36] LABS: BUN/Creatinine Ratio 28.8
[2020-03-08] MEDS: MIDAZOLAM DRIP 50 mg/50mL 50 ML IV SCH (08:49)
[2020-03-08] MEDS: CEFEPIME 1 GM in SODIUM CHL 0.9% 50 ML IV SCH ×2 (09:35→21:53)
[2020-03-08] MEDS: SODIUM BICARBONATE 50ML VIAL 50 ML in SOD CHL 0.45% 1,000 ML IV SCH ×2 (10:04→20:00)
[2020-03-08 11:04] LABS: Eosinophils # (auto) 0.5 10 ^3/uL (0-0.8); Lymphocytes # (auto) 0.4 10 ^3/uL (0.4-5.4); Lymphocytes % (auto) 5.1 % (10.0-50.0); Monocytes # (auto) 0.8 10 ^3/uL (0-1.3); White Blood Cell 8.7 10^3/uL (4.4-10.8)
[2020-03-08 11:05] LABS: Basophils # (auto) 0 10 ^3/uL (0-0.2); Basophils % (auto) 0.6 % (0.0-2.0); Eosinophils % (auto) 5.3 % (0.0-7.0); Hematocrit 26.2 % (36.0-46.0); Hemoglobin 8.1 g/dL (12.2-16.2); Mean Corpuscular Hemoglobin 26.9 pg (28.0-32.0); Mean Corpuscular Hgb Conc. 30.8 g/dL (32.0-36.0); Mean Corpuscular Volume 87.1 fL (80.0-100.0); Monocytes % (auto) 9.3 % (0.0-12.0); Neutrophils # (auto) 6.9 10 ^3/uL (1.6-8.6); Neutrophils % (auto) 79.7 % (37.0-80.0); Platelet Count (auto) 281 10^3/uL (140-450); Red Blood Cells 3.01 10^6/uL (4.0-5.20); Red Cell Distribution Width 17.9 % (11.8-14.3)
[2020-03-08] MEDS: fentaNYL Drip 2500mCg/250mlNS 250 ML IV SCH (12:15)
[2020-03-08] MEDS ORDERED: DEXTROSE (50%) 50ML SYRG IV PRN (12:30)
[2020-03-08] MEDS ORDERED: FUROSEMIDE 40 MG/4 ML VIAL IV ONE (12:30)
[2020-03-08] MEDS: NOREPINEPHRINE 8 MG/250ML KIT 250 ML IV SCH (13:42)
[2020-03-08] MEDS: ACCU-CHEK COMFORT CURVE STRIP VI SCH (18:01)
[2020-03-08] MEDS: InsuLIN REG 1unit/0.01ml Soln (100units/ml) SC SCH (18:05)
[2020-03-09] VITALS (102 sets, daily range): BP systolic 88–156; BP diastolic 30–50
[2020-03-09] MEDS: ACCU-CHEK COMFORT CURVE STRIP VI SCH ×4 (00:15→17:28)
[2020-03-09] MEDS: InsuLIN REG 1unit/0.01ml Soln (100units/ml) SC SCH ×4 (00:18→17:28)
[2020-03-09] MEDS: MIDAZOLAM DRIP 50 mg/50mL 50 ML IV SCH (01:05)
[2020-03-09] MEDS: FREE WATER NG SCH ×6 (02:00→21:55)
[2020-03-09] MEDS: IPRATROPIUM BROM 0.5 MG/2.5ML INH SOL NEB SCH ×6 (02:15→22:06)
[2020-03-09] MEDS: ALBUTEROL SULF 2.5 MG/0.5ML(0.5%) NEB SOLN NEB SCH ×6 (02:15→22:06)
[2020-03-09 04:06] LABS: Basophils # (auto) 0 10 ^3/uL (0-0.2); Basophils % (auto) 0.4 % (0.0-2.0); Eosinophils # (auto) 0.4 10 ^3/uL (0-0.8); Hemoglobin 7.6 g/dL (12.2-16.2); Mean Corpuscular Volume 86.5 fL (80.0-100.0); Monocytes # (auto) 0.6 10 ^3/uL (0-1.3); Platelet Count (auto) 252 10^3/uL (140-450)
[2020-03-09 04:07] LABS: Eosinophils % (auto) 6.1 % (0.0-7.0); Hematocrit 24.1 % (36.0-46.0); Lymphocytes # (auto) 0.5 10 ^3/uL (0.4-5.4); Lymphocytes % (auto) 6.8 % (10.0-50.0); Mean Corpuscular Hemoglobin 27.3 pg (28.0-32.0); Mean Corpuscular Hgb Conc. 31.5 g/dL (32.0-36.0); Monocytes % (auto) 8.1 % (0.0-12.0); Neutrophils # (auto) 5.6 10 ^3/uL (1.6-8.6); Neutrophils % (auto) 78.6 % (37.0-80.0); Red Blood Cells 2.79 10^6/uL (4.0-5.20); Red Cell Distribution Width 18.2 % (11.8-14.3); White Blood Cell 7.1 10^3/uL (4.4-10.8)
[2020-03-09 04:28] LABS: Calcium 7.8 mg/dL (8.5-10.1); Potassium 4.3 mmol/L (3.5-5.1)
[2020-03-09 04:30] LABS: BUN/Creatinine Ratio 28.1
[2020-03-09] MEDS: SODIUM BICARBONATE 50ML VIAL 100 ML in SOD CHL 0.45% 1,000 ML IV SCH ×2 (09:08→21:54)
[2020-03-09] MEDS: PANTOPRAZOLE 40 MG/10 ML VIAL INJ IV SCH (10:14)
[2020-03-09] MEDS: CEFEPIME 1 GM in SODIUM CHL 0.9% 50 ML IV SCH ×2 (10:14→21:54)
[2020-03-09] MEDS ORDERED: EPINEPHrine HCL 0 ML IV ONE (15:05)
[2020-03-09] MEDS: VANCOMYCIN 750mg/250ml 250 ML IV SCH (18:43)
[2020-03-10] VITALS (102 sets, daily range): BP systolic 10–149; BP diastolic 27–99
[2020-03-10] MEDS: FREE WATER NG SCH ×4 (02:00→14:00)
[2020-03-10] MEDS: IPRATROPIUM BROM 0.5 MG/2.5ML INH SOL NEB SCH ×5 (02:10→22:10)
[2020-03-10] MEDS: ALBUTEROL SULF 2.5 MG/0.5ML(0.5%) NEB SOLN NEB SCH ×5 (02:10→22:10)
[2020-03-10] MEDS: fentaNYL Drip 2500mCg/250mlNS 250 ML IV SCH (03:13)
[2020-03-10] MEDS: NOREPINEPHRINE 8 MG/250ML KIT 250 ML IV SCH (03:15)
[2020-03-10] MEDS: MIDAZOLAM DRIP 50 mg/50mL 50 ML IV SCH (04:33)
[2020-03-10 04:37] LABS: Basophils # (auto) 0 10 ^3/uL (0-0.2); Basophils % (auto) 0.8 % (0.0-2.0); Eosinophils # (auto) 0.6 10 ^3/uL (0-0.8); Hematocrit 22.8 % (36.0-46.0); Hemoglobin 7.3 g/dL (12.2-16.2); Neutrophils # (auto) 4.4 10 ^3/uL (1.6-8.6); Red Blood Cells 2.65 10^6/uL (4.0-5.20)
[2020-03-10 04:44] LABS: Eosinophils % (auto) 9.6 % (0.0-7.0); Lymphocytes # (auto) 0.4 10 ^3/uL (0.4-5.4); Lymphocytes % (auto) 7.2 % (10.0-50.0); Mean Corpuscular Hemoglobin 27.6 pg (28.0-32.0); Mean Corpuscular Hgb Conc. 32.1 g/dL (32.0-36.0); Monocytes # (auto) 0.6 10 ^3/uL (0-1.3); Monocytes % (auto) 9.3 % (0.0-12.0); Neutrophils % (auto) 73.1 % (37.0-80.0); Platelet Count (auto) 242 10^3/uL (140-450); Red Cell Distribution Width 19.1 % (11.8-14.3)
[2020-03-10 04:55] LABS: Calcium 7.6 mg/dL (8.5-10.1); Potassium 4.2 mmol/L (3.5-5.1)
[2020-03-10 04:59] LABS: BUN/Creatinine Ratio 25.7
[2020-03-10] MEDS: InsuLIN REG 1unit/0.01ml Soln (100units/ml) SC SCH ×4 (05:31→18:00)
[2020-03-10] MEDS: ACCU-CHEK COMFORT CURVE STRIP VI SCH ×4 (05:31→17:57)
[2020-03-10] MEDS: SODIUM BICARBONATE 50ML VIAL 100 ML in SOD CHL 0.45% 1,000 ML IV SCH (09:39)
[2020-03-10] MEDS: CEFEPIME 1 GM in SODIUM CHL 0.9% 50 ML IV SCH ×2 (09:40→22:24)
[2020-03-10] MEDS: PANTOPRAZOLE 40 MG/10 ML VIAL INJ IV SCH (09:40)
[2020-03-10] MEDS: BUMETANIDE 2.5mg/10ml (0.25 mg/ml) INJ IV SCH ×2 (12:15→17:57)
[2020-03-10] MEDS ORDERED: BUMETANIDE 2.5mg/10ml (0.25 mg/ml) INJ IV ONE (12:30)
[2020-03-10] MEDS ORDERED: LIDOCAINE 1% (LOCAL ANESTH.) PF 5ml SDV ID ONE (15:30)
[2020-03-10] MEDS: SODIUM BICARBONATE 50ML VIAL 50 ML in D5W 5% 1,000 ML IV SCH (16:12)
[2020-03-10] MEDS: SODIUM CHLOR 0.9% PF (SALINE LOCK) 10ML VIAL/SYR IV SCH (22:24)
[2020-03-11] VITALS (106 sets, daily range): BP systolic 94–181; BP diastolic 32–70
[2020-03-11] MEDS: SODIUM BICARBONATE 50ML VIAL 50 ML in D5W 5% 1,000 ML IV SCH (01:38)
[2020-03-11] MEDS: ALBUTEROL SULF 2.5 MG/0.5ML(0.5%) NEB SOLN NEB SCH ×6 (02:38→22:10)
[2020-03-11] MEDS: IPRATROPIUM BROM 0.5 MG/2.5ML INH SOL NEB SCH ×6 (02:38→22:10)
[2020-03-11] MEDS: hydrALAZINE HCL 20 MG/ML VL IV PRN (03:12)
[2020-03-11] MEDS: NOREPINEPHRINE 8 MG/250ML KIT 250 ML IV SCH (03:15)
[2020-03-11] MEDS: fentaNYL Drip 2500mCg/250mlNS 250 ML IV SCH (04:00)
[2020-03-11 04:27] LABS: Basophils # (auto) 0 10 ^3/uL (0-0.2); Basophils % (auto) 0.4 % (0.0-2.0); Eosinophils # (auto) 0.3 10 ^3/uL (0-0.8); Eosinophils % (auto) 5.1 % (0.0-7.0); Hematocrit 26.3 % (36.0-46.0); Hemoglobin 8.5 g/dL (12.2-16.2); Lymphocytes # (auto) 0.4 10 ^3/uL (0.4-5.4); Lymphocytes % (auto) 7.4 % (10.0-50.0); Mean Corpuscular Hemoglobin 27.5 pg (28.0-32.0); Mean Corpuscular Hgb Conc. 32.3 g/dL (32.0-36.0); Mean Corpuscular Volume 85.1 fL (80.0-100.0); Monocytes # (auto) 0.5 10 ^3/uL (0-1.3); Monocytes % (auto) 9.6 % (0.0-12.0); Neutrophils # (auto) 4.2 10 ^3/uL (1.6-8.6); Neutrophils % (auto) 77.5 % (37.0-80.0); Platelet Count (auto) 249 10^3/uL (140-450); Red Blood Cells 3.09 10^6/uL (4.0-5.20); Red Cell Distribution Width 18.9 % (11.8-14.3); White Blood Cell 5.4 10^3/uL (4.4-10.8)
[2020-03-11] MEDS: MIDAZOLAM DRIP 50 mg/50mL 50 ML IV SCH (04:33)
[2020-03-11 04:46] LABS: Calcium 7.7 mg/dL (8.5-10.1); Potassium 3.9 mmol/L (3.5-5.1)
[2020-03-11 04:48] LABS: BUN/Creatinine Ratio 24.1
[2020-03-11] MEDS: BUMETANIDE 2.5mg/10ml (0.25 mg/ml) INJ IV SCH ×2 (06:00→18:03)
[2020-03-11] MEDS: InsuLIN REG 1unit/0.01ml Soln (100units/ml) SC SCH ×5 (06:21→23:45)
[2020-03-11] MEDS: ACCU-CHEK COMFORT CURVE STRIP VI SCH ×5 (06:21→23:45)
[2020-03-11] MEDS: CEFEPIME 1 GM in SODIUM CHL 0.9% 50 ML IV SCH ×2 (10:11→22:14)
[2020-03-11] MEDS: SODIUM CHLOR 0.9% PF (SALINE LOCK) 10ML VIAL/SYR IV SCH ×2 (10:11→22:14)
[2020-03-11] MEDS: PANTOPRAZOLE 40 MG/10 ML VIAL INJ IV SCH (10:11)
[2020-03-11] MEDS: VANCOMYCIN 750mg/250ml 250 ML IV SCH (18:01)
[2020-03-11] MEDS: MORPHINE SULF INJ 2 MG/ML SYRINGE 1ML IV PRN (19:32)
[2020-03-12] VITALS (100 sets, daily range): BP systolic 102–167; BP diastolic 37–72
[2020-03-12] MEDS: IPRATROPIUM BROM 0.5 MG/2.5ML INH SOL NEB SCH ×6 (01:54→22:07)
[2020-03-12] MEDS: ALBUTEROL SULF 2.5 MG/0.5ML(0.5%) NEB SOLN NEB SCH ×6 (01:54→22:07)
[2020-03-12] MEDS: MORPHINE SULF INJ 2 MG/ML SYRINGE 1ML IV PRN (03:19)
[2020-03-12 04:44] LABS: Basophils # (auto) 0 10 ^3/uL (0-0.2); Basophils % (auto) 0.6 % (0.0-2.0); Eosinophils # (auto) 0.2 10 ^3/uL (0-0.8); Eosinophils % (auto) 3.4 % (0.0-7.0); Hematocrit 23.2 % (36.0-46.0); Hemoglobin 7.7 g/dL (12.2-16.2); Lymphocytes # (auto) 0.4 10 ^3/uL (0.4-5.4); Lymphocytes % (auto) 6.2 % (10.0-50.0); Mean Corpuscular Hemoglobin 27.8 pg (28.0-32.0); Mean Corpuscular Hgb Conc. 33.2 g/dL (32.0-36.0); Mean Corpuscular Volume 83.8 fL (80.0-100.0); Monocytes # (auto) 0.7 10 ^3/uL (0-1.3); Monocytes % (auto) 12.1 % (0.0-12.0); Neutrophils # (auto) 4.5 10 ^3/uL (1.6-8.6); Neutrophils % (auto) 77.7 % (37.0-80.0); Platelet Count (auto) 269 10^3/uL (140-450); Red Blood Cells 2.77 10^6/uL (4.0-5.20); Red Cell Distribution Width 18.7 % (11.8-14.3); White Blood Cell 5.8 10^3/uL (4.4-10.8)
[2020-03-12 04:54] LABS: BUN/Creatinine Ratio 25.3; Calcium 7.8 mg/dL (8.5-10.1); Potassium 3.4 mmol/L (3.5-5.1)
[2020-03-12] MEDS: BUMETANIDE 2.5mg/10ml (0.25 mg/ml) INJ IV SCH ×2 (05:35→17:57)
[2020-03-12] MEDS: ACCU-CHEK COMFORT CURVE STRIP VI SCH ×4 (06:00→23:53)
[2020-03-12] MEDS: InsuLIN REG 1unit/0.01ml Soln (100units/ml) SC SCH ×4 (06:00→23:53)
[2020-03-12] MEDS ORDERED: POTASSIUM CHL 20MEQ/100ML 100 ML IV ONE (06:26)
[2020-03-12] MEDS: POTASSIUM CHL 20MEQ/100ML 100 ML IV SCH ×2 (06:30→11:15)
[2020-03-12] MEDS ORDERED: POTASSIUM EFFERVESENT TAB 25 MEQ PO ONE (07:15)
[2020-03-12] MEDS ORDERED: POTASSIUM CHLORIDE 40 MEQ, LIDOCAINE 1% (LOCAL ANESTH.) 4 ML in SODIUM CHL 0.9% 100 ML IV ONE (07:15)
[2020-03-12] MEDS: PANTOPRAZOLE 40 MG/10 ML VIAL INJ IV SCH (08:53)
[2020-03-12] MEDS: CEFEPIME 1 GM in SODIUM CHL 0.9% 50 ML IV SCH ×2 (11:15→22:44)
[2020-03-12] MEDS: SODIUM CHLOR 0.9% PF (SALINE LOCK) 10ML VIAL/SYR IV SCH ×2 (11:16→22:00)
[2020-03-13] VITALS (68 sets, daily range): BP systolic 112–165; BP diastolic 29–71
[2020-03-13] MEDS: MORPHINE SULF INJ 2 MG/ML SYRINGE 1ML IV PRN (02:21)
[2020-03-13] MEDS: ALBUTEROL SULF 2.5 MG/0.5ML(0.5%) NEB SOLN NEB SCH ×6 (02:23→22:28)
[2020-03-13] MEDS: IPRATROPIUM BROM 0.5 MG/2.5ML INH SOL NEB SCH ×6 (02:23→22:28)
[2020-03-13 04:43] LABS: Eosinophils # (auto) 0.3 10 ^3/uL (0-0.8); Hemoglobin 8.1 g/dL (12.2-16.2); Lymphocytes # (auto) 0.5 10 ^3/uL (0.4-5.4); Monocytes # (auto) 0.8 10 ^3/uL (0-1.3); Red Cell Distribution Width 18.9 % (11.8-14.3)
[2020-03-13 04:45] LABS: Basophils # (auto) 0.1 10 ^3/uL (0-0.2); Basophils % (auto) 1.3 % (0.0-2.0); Eosinophils % (auto) 4.6 % (0.0-7.0); Hematocrit 24.9 % (36.0-46.0); Lymphocytes % (auto) 6.9 % (10.0-50.0); Mean Corpuscular Hemoglobin 27.6 pg (28.0-32.0); Mean Corpuscular Hgb Conc. 32.6 g/dL (32.0-36.0); Mean Corpuscular Volume 84.6 fL (80.0-100.0); Monocytes % (auto) 12.7 % (0.0-12.0); Neutrophils % (auto) 74.5 % (37.0-80.0); Nucleated Red Blood Cells % 0.1 %; Platelet Count (auto) 315 10^3/uL (140-450); Red Blood Cells 2.95 10^6/uL (4.0-5.20); White Blood Cell 6.7 10^3/uL (4.4-10.8)
[2020-03-13 04:59] LABS: Albumin 1.5 g/dL (3.4-5.0); Calcium 8.1 mg/dL (8.5-10.1); Potassium 4.1 mmol/L (3.5-5.1)
[2020-03-13 05:02] LABS: BUN/Creatinine Ratio 22.5; Bilirubin, Total 0.8 mg/dL (0.2-1.0); Total Protein 6.1 g/dL (6.4-8.2)
[2020-03-13] MEDS: hydrALAZINE HCL 20 MG/ML VL IV PRN (05:06)
[2020-03-13] MEDS: BUMETANIDE 2.5mg/10ml (0.25 mg/ml) INJ IV SCH ×2 (05:53→17:28)
[2020-03-13] MEDS: ACCU-CHEK COMFORT CURVE STRIP VI SCH ×3 (05:57→17:42)
[2020-03-13] MEDS: InsuLIN REG 1unit/0.01ml Soln (100units/ml) SC SCH ×3 (05:57→17:42)
[2020-03-13] MEDS: CEFEPIME 1 GM in SODIUM CHL 0.9% 50 ML IV SCH ×2 (10:03→22:07)
[2020-03-13] MEDS: PANTOPRAZOLE 40 MG/10 ML VIAL INJ IV SCH (10:03)
[2020-03-13] MEDS: SODIUM CHLOR 0.9% PF (SALINE LOCK) 10ML VIAL/SYR IV SCH ×2 (10:04→22:03)
[2020-03-13] MEDS ORDERED: TPN PER PHARMACY 0 ML IV SCH (10:45)
[2020-03-13 11:01] LABS: Magnesium 1.6 mg/dL (1.6-2.6); Phosphorus 2.6 mg/dL (2.5-4.90)
[2020-03-13] MEDS: VANCOMYCIN 750mg/250ml 250 ML IV SCH (17:41)
[2020-03-13] MEDS: TPN PER PHARMACY IV NR ×8 (20:00)
[2020-03-14] VITALS (46 sets, daily range): BP systolic 117–175; BP diastolic 40–75
[2020-03-14] MEDS: ALBUTEROL SULF 2.5 MG/0.5ML(0.5%) NEB SOLN NEB SCH ×6 (02:17→22:16)
[2020-03-14] MEDS: IPRATROPIUM BROM 0.5 MG/2.5ML INH SOL NEB SCH ×6 (02:17→22:15)
[2020-03-14 04:42] LABS: Eosinophils # (auto) 0.2 10 ^3/uL (0-0.8); Hemoglobin 7.4 g/dL (12.2-16.2); Lymphocytes # (auto) 0.5 10 ^3/uL (0.4-5.4); Neutrophils # (auto) 6.2 10 ^3/uL (1.6-8.6)
[2020-03-14 04:44] LABS: Basophils # (auto) 0.1 10 ^3/uL (0-0.2); Basophils % (auto) 0.7 % (0.0-2.0); Eosinophils % (auto) 2.4 % (0.0-7.0); Hematocrit 22.9 % (36.0-46.0); Lymphocytes % (auto) 6.3 % (10.0-50.0); Mean Corpuscular Hemoglobin 27.3 pg (28.0-32.0); Mean Corpuscular Hgb Conc. 32.3 g/dL (32.0-36.0); Mean Corpuscular Volume 84.6 fL (80.0-100.0); Monocytes # (auto) 1.1 10 ^3/uL (0-1.3); Monocytes % (auto) 13.2 % (0.0-12.0); Neutrophils % (auto) 77.4 % (37.0-80.0); Platelet Count (auto) 354 10^3/uL (140-450); Red Blood Cells 2.71 10^6/uL (4.0-5.20); Red Cell Distribution Width 19.3 % (11.8-14.3)
[2020-03-14 05:00] LABS: Potassium 3.3 mmol/L (3.5-5.1)
[2020-03-14 05:09] LABS: Albumin 1.5 g/dL (3.4-5.0); BUN/Creatinine Ratio 22.3; Bilirubin, Total 0.6 mg/dL (0.2-1.0); Calcium 7.7 mg/dL (8.5-10.1); Magnesium 1.4 mg/dL (1.6-2.6); Phosphorus 2.3 mg/dL (2.5-4.90); Total Protein 5.9 g/dL (6.4-8.2)
[2020-03-14] MEDS: BUMETANIDE 2.5mg/10ml (0.25 mg/ml) INJ IV SCH (06:24)
[2020-03-14] MEDS: InsuLIN REG 1unit/0.01ml Soln (100units/ml) SC SCH ×4 (06:26→18:19)
[2020-03-14] MEDS: ACCU-CHEK COMFORT CURVE STRIP VI SCH ×4 (06:26→18:15)
[2020-03-14] MEDS: hydrALAZINE HCL 20 MG/ML VL IV PRN (08:12)
[2020-03-14] MEDS: MAGNESIUM SULFATE 1GM/100ML 100 ML IV SCH ×2 (09:26→10:22)
[2020-03-14] MEDS: PANTOPRAZOLE 40 MG/10 ML VIAL INJ IV SCH (09:29)
[2020-03-14] MEDS: SODIUM CHLOR 0.9% PF (SALINE LOCK) 10ML VIAL/SYR IV SCH ×2 (09:33→22:00)
[2020-03-14] MEDS ORDERED: POTASSIUM PHOSP 22MEQ(15MMOLE) in NS 100 ML IV ONE (09:45)
[2020-03-14] MEDS: CEFEPIME 1 GM in SODIUM CHL 0.9% 50 ML IV SCH ×2 (11:34→22:00)
[2020-03-14] MEDS ORDERED: DEXTROSE (50%) 50ML SYRG IV SCH (13:45)
[2020-03-14] MEDS: TPN PER PHARMACY IV NR ×8 (19:56)
[2020-03-14] MEDS ORDERED: TPN PER PHARMACY IV NR ×10 (20:00)
[2020-03-15] VITALS (32 sets, daily range): BP systolic 102–159; BP diastolic 20–80
[2020-03-15] MEDS: ALBUTEROL SULF 2.5 MG/0.5ML(0.5%) NEB SOLN NEB SCH ×6 (02:23→22:12)
[2020-03-15] MEDS: IPRATROPIUM BROM 0.5 MG/2.5ML INH SOL NEB SCH ×6 (02:23→22:12)
[2020-03-15 05:14] LABS: Potassium 3.2 mmol/L (3.5-5.1)
[2020-03-15 05:19] LABS: Albumin 1.6 g/dL (3.4-5.0); BUN/Creatinine Ratio 23.6; Bilirubin, Total 0.6 mg/dL (0.2-1.0); Calcium 8.1 mg/dL (8.5-10.1); Phosphorus 2.7 mg/dL (2.5-4.90); Total Protein 6.1 g/dL (6.4-8.2)
[2020-03-15] MEDS: ACCU-CHEK COMFORT CURVE STRIP VI SCH ×5 (06:11→23:56)
[2020-03-15] MEDS: InsuLIN REG 1unit/0.01ml Soln (100units/ml) SC SCH ×5 (06:11→23:57)
[2020-03-15] MEDS: MORPHINE SULF INJ 2 MG/ML SYRINGE 1ML IV PRN ×3 (08:05→23:58)
[2020-03-15] MEDS: SODIUM CHLOR 0.9% PF (SALINE LOCK) 10ML VIAL/SYR IV SCH ×2 (10:00→21:48)
[2020-03-15] MEDS: PANTOPRAZOLE 40 MG/10 ML VIAL INJ IV SCH (10:44)
[2020-03-15] MEDS: CEFEPIME 1 GM in SODIUM CHL 0.9% 50 ML IV SCH ×2 (10:44→21:48)
[2020-03-15] MEDS ORDERED: POTASSIUM CHL 20MEQ/100ML 100 ML IV ONE (12:30)
[2020-03-15] MEDS ORDERED: TPN PER PHARMACY IV NR ×8 (20:00)
[2020-03-15] MEDS ORDERED: VANCOMYCIN 750mg/250ml 250 ML IV SCH (20:00)
[2020-03-16] VITALS (20 sets, daily range): BP systolic 113–168; BP diastolic 37–149
[2020-03-16] MEDS: ALBUTEROL SULF 2.5 MG/0.5ML(0.5%) NEB SOLN NEB SCH ×6 (02:27→22:57)
[2020-03-16] MEDS: IPRATROPIUM BROM 0.5 MG/2.5ML INH SOL NEB SCH ×6 (02:27→22:57)
[2020-03-16 06:27] LABS: Potassium 3.4 mmol/L (3.5-5.1)
[2020-03-16 06:35] LABS: Albumin 1.5 g/dL (3.4-5.0); BUN/Creatinine Ratio 24.6; Bilirubin, Total 0.5 mg/dL (0.2-1.0); Calcium 7.9 mg/dL (8.5-10.1); Magnesium 2.2 mg/dL (1.6-2.6); Phosphorus 3.2 mg/dL (2.5-4.90); Total Protein 5.8 g/dL (6.4-8.2)
[2020-03-16] MEDS: ACCU-CHEK COMFORT CURVE STRIP VI SCH ×3 (06:38→17:58)
[2020-03-16] MEDS: InsuLIN REG 1unit/0.01ml Soln (100units/ml) SC SCH ×3 (06:39→17:58)
[2020-03-16] MEDS: MORPHINE SULF INJ 2 MG/ML SYRINGE 1ML IV PRN ×2 (06:40→13:43)
[2020-03-16] MEDS ORDERED: POTASSIUM CHL 20MEQ/100ML 100 ML IV ONE (08:30)
[2020-03-16] MEDS: SODIUM CHLOR 0.9% PF (SALINE LOCK) 10ML VIAL/SYR IV SCH ×2 (10:00→21:42)
[2020-03-16] MEDS: CEFEPIME 1 GM in SODIUM CHL 0.9% 50 ML IV SCH ×2 (11:26→21:42)
[2020-03-16] MEDS: PANTOPRAZOLE 40 MG/10 ML VIAL INJ IV SCH (11:26)
[2020-03-16] MEDS ORDERED: TPN PER PHARMACY 0 ML IV SCH (13:00)
[2020-03-16] MEDS ORDERED: TPN PER PHARMACY IV NR ×9 (20:00)
[2020-03-16] MEDS ORDERED: HEPARIN SODIUM (PORCINE) 5000 UNITS/ML 1ML VIAL ONE (21:30)
[2020-03-16] MEDS: HEPARIN SODIUM (PORCINE) 5000 UNITS/ML 1ML VIAL SC SCH (21:43)
[2020-03-17] MEDS: ACCU-CHEK COMFORT CURVE STRIP VI SCH ×4 (00:11→18:08)
[2020-03-17] MEDS: InsuLIN REG 1unit/0.01ml Soln (100units/ml) SC SCH ×4 (00:12→18:26)
[2020-03-17] MEDS: ALBUTEROL SULF 2.5 MG/0.5ML(0.5%) NEB SOLN NEB SCH ×6 (02:00→22:28)
[2020-03-17] MEDS: IPRATROPIUM BROM 0.5 MG/2.5ML INH SOL NEB SCH ×6 (02:00→22:28)
[2020-03-17 05:00] VITALS: BP 151/68
[2020-03-17] MEDS: SODIUM CHLOR 0.9% PF (SALINE LOCK) 10ML VIAL/SYR IV SCH ×2 (08:32→22:12)
[2020-03-17] MEDS: PANTOPRAZOLE 40 MG/10 ML VIAL INJ IV SCH (08:32)
[2020-03-17 08:38] VITALS: BP 131/56
[2020-03-17 09:41] LABS: Basophils # (auto) 0.1 10 ^3/uL (0-0.2); Basophils % (auto) 0.4 % (0.0-2.0); Eosinophils # (auto) 0.4 10 ^3/uL (0-0.8); Eosinophils % (auto) 2.7 % (0.0-7.0); Hematocrit 24.2 % (36.0-46.0); Hemoglobin 7.3 g/dL (12.2-16.2); Lymphocytes # (auto) 0.5 10 ^3/uL (0.4-5.4); Lymphocytes % (auto) 3.4 % (10.0-50.0); Mean Corpuscular Hemoglobin 27.2 pg (28.0-32.0); Mean Corpuscular Hgb Conc. 30.3 g/dL (32.0-36.0); Mean Corpuscular Volume 89.9 fL (80.0-100.0); Monocytes # (auto) 1.2 10 ^3/uL (0-1.3); Monocytes % (auto) 8.7 % (0.0-12.0); Neutrophils # (auto) 11.5 10 ^3/uL (1.6-8.6); Neutrophils % (auto) 84.8 % (37.0-80.0); Platelet Count (auto) 406 10^3/uL (140-450); Red Blood Cells 2.69 10^6/uL (4.0-5.20); Red Cell Distribution Width 20.2 % (11.8-14.3); White Blood Cell 13.5 10^3/uL (4.4-10.8)
[2020-03-17] MEDS: CEFEPIME 1 GM in SODIUM CHL 0.9% 50 ML IV SCH ×2 (09:55→22:12)
[2020-03-17] MEDS: HEPARIN SODIUM (PORCINE) 5000 UNITS/ML 1ML VIAL SC SCH ×2 (09:56→22:13)
[2020-03-17 12:23] LABS: Albumin 1.3 g/dL (3.4-5.0); Calcium 7.6 mg/dL (8.5-10.1); Magnesium 2.5 mg/dL (1.6-2.6); Potassium 4.1 mmol/L (3.5-5.1)
[2020-03-17 12:26] LABS: BUN/Creatinine Ratio 25.2; Bilirubin, Total 0.4 mg/dL (0.2-1.0); Phosphorus 2.9 mg/dL (2.5-4.90); Total Protein 5.6 g/dL (6.4-8.2)
[2020-03-17 13:00] VITALS: BP 111/52
[2020-03-17 17:27] VITALS: BP 103/48
[2020-03-17] MEDS: ACETYLCYSTEINE 20%(200MG/ML) SOL 4ML NEB SCH ×2 (18:33→22:29)
[2020-03-17] MEDS ORDERED: TPN PER PHARMACY IV NR ×9 (20:00)
[2020-03-17 21:28] LABS: BUN/Creatinine Ratio 24.7; Potassium 4.1 mmol/L (3.5-5.1)
[2020-03-17 21:57] VITALS: BP 111/52
[2020-03-18] MEDS: ACCU-CHEK COMFORT CURVE STRIP VI SCH ×4 (00:23→17:56)
[2020-03-18] MEDS: InsuLIN REG 1unit/0.01ml Soln (100units/ml) SC SCH ×4 (00:33→17:56)
[2020-03-18] MEDS: ALBUTEROL SULF 2.5 MG/0.5ML(0.5%) NEB SOLN NEB SCH ×6 (02:11→22:14)
[2020-03-18] MEDS: IPRATROPIUM BROM 0.5 MG/2.5ML INH SOL NEB SCH ×6 (02:12→22:14)
[2020-03-18] MEDS: ACETYLCYSTEINE 20%(200MG/ML) SOL 4ML NEB SCH ×6 (02:12→22:14)
[2020-03-18 05:00] VITALS: BP 108/55
[2020-03-18 08:36] LABS: Albumin 1.5 g/dL (3.4-5.0); Calcium 8.1 mg/dL (8.5-10.1); Magnesium 2.3 mg/dL (1.6-2.6); Potassium 3.8 mmol/L (3.5-5.1)
[2020-03-18 08:40] LABS: BUN/Creatinine Ratio 24.5; Bilirubin, Total 0.4 mg/dL (0.2-1.0); Phosphorus 3.4 mg/dL (2.5-4.90); Total Protein 6.1 g/dL (6.4-8.2)
[2020-03-18 08:47] LABS: Basophils # (auto) 0.1 10 ^3/uL (0-0.2); Basophils % (auto) 0.7 % (0.0-2.0); Eosinophils # (auto) 0.7 10 ^3/uL (0-0.8); Neutrophils # (auto) 9.3 10 ^3/uL (1.6-8.6)
[2020-03-18 08:48] LABS: Eosinophils % (auto) 5.5 % (0.0-7.0); Hematocrit 24.2 % (36.0-46.0); Hemoglobin 7.5 g/dL (12.2-16.2); Lymphocytes # (auto) 0.8 10 ^3/uL (0.4-5.4); Lymphocytes % (auto) 6.5 % (10.0-50.0); Mean Corpuscular Hemoglobin 26.6 pg (28.0-32.0); Mean Corpuscular Volume 85.8 fL (80.0-100.0); Monocytes # (auto) 1.2 10 ^3/uL (0-1.3); Monocytes % (auto) 10.1 % (0.0-12.0); Neutrophils % (auto) 77.2 % (37.0-80.0); Platelet Count (auto) 453 10^3/uL (140-450); Red Blood Cells 2.82 10^6/uL (4.0-5.20)
[2020-03-18 09:07] VITALS: BP 110/69
[2020-03-18] MEDS: HEPARIN SODIUM (PORCINE) 5000 UNITS/ML 1ML VIAL SC SCH ×2 (11:54→21:25)
[2020-03-18] MEDS: CEFEPIME 1 GM in SODIUM CHL 0.9% 50 ML IV SCH ×2 (11:54→21:25)
[2020-03-18] MEDS: PANTOPRAZOLE 40 MG/10 ML VIAL INJ IV SCH (11:54)
[2020-03-18] MEDS: SODIUM CHLOR 0.9% PF (SALINE LOCK) 10ML VIAL/SYR IV SCH ×2 (11:54→21:25)
[2020-03-18 13:30] VITALS: BP 111/66
[2020-03-18 16:23] VITALS: BP 115/66
[2020-03-18] MEDS ORDERED: TPN PER PHARMACY IV NR ×9 (20:00)
[2020-03-18 22:00] VITALS: BP 117/51
[2020-03-19] VITALS (8 sets, daily range): BP systolic 88–103; BP diastolic 35–57
[2020-03-19] MEDS: ACCU-CHEK COMFORT CURVE STRIP VI SCH ×4 (00:28→18:00)
[2020-03-19] MEDS: InsuLIN REG 1unit/0.01ml Soln (100units/ml) SC SCH ×4 (00:30→18:00)
[2020-03-19] MEDS: ALBUTEROL SULF 2.5 MG/0.5ML(0.5%) NEB SOLN NEB SCH ×5 (02:00→18:35)
[2020-03-19] MEDS: IPRATROPIUM BROM 0.5 MG/2.5ML INH SOL NEB SCH ×5 (02:00→18:35)
[2020-03-19] MEDS: ACETYLCYSTEINE 20%(200MG/ML) SOL 4ML NEB SCH ×5 (02:00→18:35)
[2020-03-19 07:39] LABS: Potassium 4.1 mmol/L (3.5-5.1)
[2020-03-19 07:53] LABS: Albumin 1.4 g/dL (3.4-5.0); BUN/Creatinine Ratio 24.7; Bilirubin, Total 0.4 mg/dL (0.2-1.0); Calcium 7.8 mg/dL (8.5-10.1); Magnesium 2.1 mg/dL (1.6-2.6); Phosphorus 3.8 mg/dL (2.5-4.90); Total Protein 5.8 g/dL (6.4-8.2)
[2020-03-19] MEDS: PANTOPRAZOLE 40 MG/10 ML VIAL INJ IV SCH (09:35)
[2020-03-19] MEDS: CEFEPIME 1 GM in SODIUM CHL 0.9% 50 ML IV SCH (09:35)
[2020-03-19] MEDS: SODIUM CHLOR 0.9% PF (SALINE LOCK) 10ML VIAL/SYR IV SCH (09:36)
[2020-03-19] MEDS: HEPARIN SODIUM (PORCINE) 5000 UNITS/ML 1ML VIAL SC SCH (09:40)
[2020-03-19 10:01] LABS: Basophils # (auto) 0.1 10 ^3/uL (0-0.2); Eosinophils # (auto) 0.9 10 ^3/uL (0-0.8); Lymphocytes # (auto) 0.8 10 ^3/uL (0.4-5.4); Lymphocytes % (auto) 6.6 % (10.0-50.0); Mean Corpuscular Volume 84.8 fL (80.0-100.0)
[2020-03-19 10:02] LABS: Basophils % (auto) 0.6 % (0.0-2.0); Eosinophils % (auto) 7.3 % (0.0-7.0); Hematocrit 21.8 % (36.0-46.0); Mean Corpuscular Hgb Conc. 31.9 g/dL (32.0-36.0); Monocytes # (auto) 1.3 10 ^3/uL (0-1.3); Monocytes % (auto) 11.3 % (0.0-12.0); Neutrophils # (auto) 8.9 10 ^3/uL (1.6-8.6); Neutrophils % (auto) 74.2 % (37.0-80.0); Platelet Count (auto) 461 10^3/uL (140-450); Red Blood Cells 2.57 10^6/uL (4.0-5.20); Red Cell Distribution Width 19.5 % (11.8-14.3)
[2020-03-19 10:07] LABS: Hemoglobin 6.9 g/dL (12.2-16.2)
[2020-03-19] MEDS ORDERED: FUROSEMIDE 20 MG/2 ML VIAL IV ONE (11:45)
== END 2020-03-19 22:11 | disposition hospice, inpatient (51) | DRG 480 ==
LOC: EDBD 22:17 → ER 22:17 → OVERFLOW 22:18 → ICU WEST 03-01 09:20 → TELE-WESTW 03-16 17:36
PROVIDERS: ADMIT Internal Medicine; ATTEND Internal Medicine
PROC: B548ZZA Ultrasonography of Superior Vena Cava, Guidance (ICD-10-PCS; 2020-03-01)
PROC: 0BJ08ZZ Inspection of Tracheobronchial Tree, Via Natural or Artificial Opening Endoscopic (ICD-10-PCS; 2020-03-01)
PROC: 5A1955Z Respiratory Ventilation, Greater than 96 Consecutive Hours (ICD-10-PCS; 2020-03-01)
PROC: 0BH17EZ Insertion of Endotracheal Airway into Trachea, Via Natural or Artificial Opening (ICD-10-PCS; 2020-03-01)
PROC: 02HV33Z Insertion of Infusion Device into Superior Vena Cava, Percutaneous Approach (ICD-10-PCS; principal; 2020-03-01 15:30)
PROC: 0QS704Z Reposition Left Upper Femur with Internal Fixation Device, Open Approach (ICD-10-PCS; 2020-03-06)
PROC: 0QS604Z Reposition Right Upper Femur with Internal Fixation Device, Open Approach (ICD-10-PCS; 2020-03-06)
PROC: 30233N1 Transfusion of Nonautologous Red Blood Cells into Peripheral Vein, Percutaneous Approach (ICD-10-PCS; 2020-03-06)
PROC: B41 Imaging, Lower Arteries, Fluoroscopy (ICD-10-PCS; 2020-03-06)
DX: S72.142A Displaced intertrochanteric fracture of left femur, initial encounter for closed fracture (principal); J96.01 Acute respiratory failure with hypoxia; S72.141A Displaced intertrochanteric fracture of right femur, initial encounter for closed fracture; J18.9 Pneumonia, unspecified organism; J94.2 Hemothorax; N17.9 Acute kidney failure, unspecified; J98.11 Atelectasis; E87.0 Hyperosmolality and hypernatremia; E87.2 Acidosis; E44.0 Moderate protein-calorie malnutrition; R57.9 Shock, unspecified; I13.0 Hypertensive heart and chronic kidney disease with heart failure and stage 1 through stage 4 chronic kidney disease, or unspecified chronic kidney disease; J90 Pleural effusion, not elsewhere classified; D62 Acute posthemorrhagic anemia; W18.30XA Fall on same level, unspecified, initial encounter; E87.5 Hyperkalemia; I48.91 Unspecified atrial fibrillation; M81.0 Age-related osteoporosis without current pathological fracture; I25.10 Atherosclerotic heart disease of native coronary artery without angina pectoris; E78.5 Hyperlipidemia, unspecified; I50.9 Heart failure, unspecified; J45.909 Unspecified asthma, uncomplicated; M16.10 Unilateral primary osteoarthritis, unspecified hip; M17.10 Unilateral primary osteoarthritis, unspecified knee; R29.6 Repeated falls; Z87.81 Personal history of (healed) traumatic fracture; Z83.3 Family history of diabetes mellitus; Z82.5 Family history of asthma and other chronic lower respiratory diseases; Z79.899 Other long term (current) drug therapy; M19.90 Unspecified osteoarthritis, unspecified site; Z79.84 Long term (current) use of oral hypoglycemic drugs; Z66 Do not resuscitate; Z80.9 Family history of malignant neoplasm, unspecified; W18.39XA Other fall on same level, initial encounter; Y93.89 Activity, other specified; Y92.89 Other specified places as the place of occurrence of the external cause; N18.9 Chronic kidney disease, unspecified; Y99.8 Other external cause status; I25.2 Old myocardial infarction; E11.21 Type 2 diabetes mellitus with diabetic nephropathy; Z20.828 Contact with and (suspected) exposure to other viral communicable diseases
CPT/HCPCS: 31500; 36415; 36569; 36600; 51702; 70450; 71045; 71250; 72170; 73502; 76000; 76001; 76604; 80048; 80053; 80076; 80202; 81001; 82040; 82140; 82805; 82962; 83036; 83615; 83735; 83880; 84100; 84478; 84484; 85025; 85610; 85730; 86850; 86900; 86901; 86920; 87040; 87070; 87077; 87081; 87186; 87205; 92610; 93005; 93970; 94002; 94003; 94640; 94668; 96365; 96375; 97110; 97163; A4565; A4618; C1713; C1769; C9113; G0378; J0171; J0330; J0610; J0690; J1815; J2001; J2250; J2405; J3480; P9047